=== PATIENT | female | born 1950 | race Caucasian/White ===

== ENCOUNTER 2020-09-21 13:46 | Outpatient (REF) | payer MEDICARE, MEDICAID, SELFPAY ==
--- NOTE | 2020-09-21 13:58 | MM_ITS ---
EXAMINATION: MM DIAGNOSTIC DIGITAL BREAST TOMOSYNTHESIS, BILATERAL CLINICAL INFORMATION: Continue follow-up left breast lump The lifetime risk of breast cancer based on the Tyrer-Cuzick Model is 4.0%. COMPARISON: Mammography: September 19, 2019 and studies dating back to November 18, 2012 TECHNIQUE: Digital breast tomosynthesis is performed in both the craniocaudal and mediolateral oblique views along with computer-aided detection (CAD). Synthesized 2D images are generated from the tomosynthesis. FINDINGS: The breasts are heterogeneously dense, which may obscure small masses (ACR BI-RADS breast composition Category c). There are no significant masses, abnormal calcifications, or other abnormalities. Results are provided to the patient at time of visit by the technologist. MM/MM tomosynthesis diagnostic BI IMPRESSION: There are no significant changes from prior study. ASSESSMENT: BI-RADS 1: Negative RECOMMENDATION: Return to routine annual screening This patient's information was entered into a reminder system with a target due date for their next mammogram.
== END 2020-09-21 13:47 | disposition home or self-care (01) ==
LOC: HO.MAMMO 13:46
PROVIDERS: PCP Internal Medicine; Visit Provider Internal Medicine
DX: R92.2 Inconclusive mammogram (principal)
CPT/HCPCS: 77062; 77066

== ENCOUNTER 2020-10-17 11:50 | Outpatient (REF) | payer MEDICARE, MEDICAID, SELFPAY ==
[2020-10-17 14:50] LABS: Anion Gap 13 (12-20); Blood Urea Nitrogen 11 mg/dL (9-16); Calcium 8.8 mg/dL (8.4-10.2); Carbon Dioxide 30 mmol/L (22-29); Chloride 106 mmol/L (96-108); Cholesterol 237 mg/dL; Estimated Glomerular Filt Rate > 60; Glucose Fasting 93 mg/dL (60-99); HDL Cholesterol 79 mg/dL; LDL Cholesterol Calculated 142 mg/dl; Potassium 3.9 mmol/l (3.3-5.1); Sodium 145 mmol/L (135-145); Triglycerides 82 mg/dL
[2020-10-17 15:01] LABS: Free T4 (Free Thyroxine) 0.74 ng/dL (0.71-1.85); Thyroid Stimulating Hormone 1.54 uIU/mL (0.32-4.0); Vitamin D 25-OH Total 29.8 ng/mL (>30)
== END 2020-10-17 11:51 | disposition home or self-care (01) ==
LOC: HO.HMGCLDS 11:50
PROVIDERS: PCP Internal Medicine; Visit Provider Internal Medicine
DX: E03.9 Hypothyroidism, unspecified (principal); I10 Essential (primary) hypertension; E78.5 Hyperlipidemia, unspecified; Z78.0 Asymptomatic menopausal state
CPT/HCPCS: 80048; 80061; 82306; 84439; 84443

== ENCOUNTER 2020-10-29 13:42 | Outpatient (REF) | payer MEDICARE, MEDICAID, SELFPAY ==
--- NOTE | 2020-10-29 13:47 | MM_ITS ---
EXAMINATION: BONE DENSITOMETRY CLINICAL INDICATION: Other specified disorders of bone density and structure. COMPARISON: Previous BD dated 09/30/2018 and baseline BD dated 12/26/2008. TECHNIQUE: Using a [employer] DXA System (software version: 13.1) manufactured by [employer], dual-energy x-ray absorptiometry was performed of the lumbar spine and left hip. The images are of good technical quality. Summary results are attached. FINDINGS: AP SPINE L1-L4: Current: BMD 0.923 g/cm2, Z-score -0.2, T-score -2.1, osteopenia, 1.9% decrease from previous, 13.1% decrease from baseline (<5% change is not significant). Prior: BMD 0.941 g/cm2. Baseline: BMD 1.062 g/cm2. LEFT FEMUR, NECK: Current: BMD 0.824 g/cm2, Z-score 0.2, T-score -1.5, osteopenia. Prior: BMD 0.760 g/cm2. Baseline: BMD 0.915 g/cm2. LEFT FEMUR, TOTAL: Current: BMD 0.831 g/cm2, Z-score 0.2, T-score -1.4, osteopenia, 0.5% increase from previous, 9.7% decrease from baseline (<5% change is not significant). Prior: BMD 0.827 g/cm2. Baseline: BMD 0.920 g/cm2. IDENTIFIED RISK FACTORS: Height loss, tobacco use (current smoker), thiazide, menopause. HISTORY OF FRACTURE: None listed. MEDICATIONS: Vitamin D. MM/XR DEXA axial skeleton IMPRESSION: 1. DIAGNOSIS: Osteopenia based on the lowest T-score value of -2.1 in the lumbar spine applying World Health Organization criteria. 2. 10-YEAR FRACTURE RISK PREDICTION, FRAX: Major osteoporotic fracture (clinical spine, forearm, hip or shoulder) 9.2%. Hip fracture 2.1%. 3. Treatment Recommendations: NOF guidelines recommend consideration for treatment in postmenopausal women and men age 50 and older presenting with the following: -A hip or vertebral (clinical or morphometric) fracture. -T-score less than or equal to -2.5 at the femoral neck or spine after appropriate evaluation to exclude secondary causes. -Low bone mass at the hip or spine and a 10-year fracture probability by FRAX of greater than or equal to 3% for hip fracture or greater than or equal to 20% for major osteoporotic fracture based on the [place] adapted WHO algorithm. 4. Other Recommendations: All treatment decisions require clinical judgment and consideration of individual patient factors, including patient preferences, comorbidities, previous drug use, risk factors not captured in the FRAX model (e.g. frailty, falls, vitamin D deficiency, increased bone turnover, interval significant decline in bone density) and possible under or overestimation of fracture risk by FRAX. Additional medical evaluation for secondary cause of low bone mineral density may be appropriate. FUTURE SCAN RECOMMENDATION: People with diagnosed cases of osteoporosis or at high risk for fracture should have regular bone mineral density tests. For patients eligible for Medicare, routine testing is allowed once every 2 years. The testing frequency can be increased to one year for patients who have rapidly progressing disease, those who are receiving or discontinuing medical therapy to restore bone mass, or have additional risk factors.
== END 2020-10-29 13:43 | disposition home or self-care (01) ==
LOC: HO.MAMMO 13:42
PROVIDERS: PCP Internal Medicine; Visit Provider Internal Medicine
DX: M85.89 Other specified disorders of bone density and structure, multiple sites (principal); Z78.0 Asymptomatic menopausal state
CPT/HCPCS: 77080

== ENCOUNTER 2021-07-24 08:58 | Outpatient (REF) | payer MEDICARE, MEDICAID, SELFPAY ==
[2021-07-24 11:48] LABS: Alanine Aminotransferase 8 U/L (0-31); Anion Gap 11 (12-20); Aspartate Amino Transferase 15 U/L (5-31); Blood Urea Nitrogen 11 mg/dL (9-16); Calcium 9.4 mg/dL (8.4-10.2); Carbon Dioxide 29 mmol/L (22-29); Chloride 107 mmol/L (96-108); Cholesterol 242 mg/dL; Estimated Glomerular Filt Rate > 60; Glucose Fasting 98 mg/dL (60-99); HDL Cholesterol 91 mg/dL; LDL Cholesterol Calculated 139 mg/dl; Sodium 143 mmol/L (135-145); Triglycerides 61 mg/dL
[2021-07-24 12:11] LABS: Free T4 (Free Thyroxine) 0.76 ng/dL (0.71-1.85); Thyroid Stimulating Hormone 2.89 uIU/mL (0.32-4.0); Vitamin D 25-OH Total 32.2 ng/mL (>30)
== END 2021-07-24 08:59 | disposition home or self-care (01) ==
LOC: HO.HMGCLDS 08:58
PROVIDERS: PCP Internal Medicine; Visit Provider Internal Medicine
DX: E03.9 Hypothyroidism, unspecified (principal); E55.9 Vitamin D deficiency, unspecified; E78.5 Hyperlipidemia, unspecified; M85.89 Other specified disorders of bone density and structure, multiple sites; I10 Essential (primary) hypertension; Z78.0 Asymptomatic menopausal state
CPT/HCPCS: 36415; 80048; 80061; 82306; 84439; 84443; 84450; 84460

== ENCOUNTER 2021-09-27 13:46 | Outpatient (REF) | payer MEDICARE, MEDICAID, SELFPAY ==
--- NOTE | ~2021-09-27 | MM_ITS ---
EXAMINATION: MM SCREENING DIGITAL BREAST TOMOSYNTHESIS, BILATERAL CLINICAL INFORMATION: Screening. Asymptomatic. The lifetime risk of breast cancer based on the Tyrer-Cuzick Model is 4%. COMPARISON: Mammography: 09/21/2020, 09/19/2019, 04/12/2019, 10/12/2018, 09/30/2018 TECHNIQUE: Digital breast tomosynthesis is performed in both the craniocaudal and mediolateral oblique views along with computer-aided detection (CAD). Synthesized 2D images are generated from the tomosynthesis. FINDINGS: There are scattered areas of fibroglandular density (ACR BI-RADS breast composition Category b). Breast tissue composition borders on heterogeneously dense. Parenchymal pattern is similar to prior studies and there is no developing density or interval mass or architectural abnormality. There are no abnormal calcifications. The axilla and skin contours are unremarkable. MM/MM tomosynthesis screening BI IMPRESSION: No mammographic evidence of malignancy. ASSESSMENT: BI-RADS 1: Negative RECOMMENDATION: Routine annual mammography screening. This patient's information was entered into a reminder system with a target due date for their next mammogram.
== END 2021-09-27 13:47 | disposition home or self-care (01) ==
LOC: HO.MAMMO 13:46
PROVIDERS: Visit Provider Internal Medicine
DX: Z12.31 Encounter for screening mammogram for malignant neoplasm of breast (principal)
CPT/HCPCS: 77063; 77067

== ENCOUNTER 2021-12-10 10:39 | Outpatient (REF) | payer MEDICARE, MEDICAID, SELFPAY ==
[2021-12-10 12:02] LABS: Alanine Aminotransferase 9 U/L (0-31); Anion Gap 12 (12-20); Aspartate Amino Transferase 15 U/L (5-31); Blood Urea Nitrogen 12 mg/dL (9-16); Calcium 9.3 mg/dL (8.4-10.2); Carbon Dioxide 29 mmol/L (22-29); Chloride 106 mmol/L (96-108); Cholesterol 247 mg/dL; Estimated Glomerular Filt Rate > 60; Glucose Fasting 104 mg/dL (60-99); HDL Cholesterol 76 mg/dL; LDL Cholesterol Calculated 153 mg/dl; Sodium 143 mmol/L (135-145); Triglycerides 94 mg/dL
[2021-12-10 12:05] LABS: Free T4 (Free Thyroxine) 0.82 ng/dL (0.71-1.85); Thyroid Stimulating Hormone 1.61 uIU/mL (0.32-4.0); Vitamin D 25-OH Total 22.6 ng/mL (>30)
== END 2021-12-10 10:40 | disposition home or self-care (01) ==
LOC: HO.HMGCLDS 10:39
PROVIDERS: Visit Provider Internal Medicine
DX: E03.9 Hypothyroidism, unspecified (principal); E55.9 Vitamin D deficiency, unspecified; E78.5 Hyperlipidemia, unspecified; F41.1 Generalized anxiety disorder; I10 Essential (primary) hypertension; M85.89 Other specified disorders of bone density and structure, multiple sites
CPT/HCPCS: 36415; 80048; 80061; 82306; 84439; 84443; 84450; 84460

== ENCOUNTER 2022-04-15 14:50 | Outpatient (REF) | payer MEDICARE, MEDICAID, SELFPAY ==
--- NOTE | 2022-04-15 17:26 | PFT_ITS ---
Forced vital capacity 83%. FEV1 64%. FEV1/FVC ratio is 59. FEF 25-75 35% and MVV is 49%. Post bronchodilator therapy, there is significant improvement in FVC and FEF 25-75. Total lung capacity 99%. Residual volume 118%. Diffusion capacity 50%. CONCLUSION: Moderately severe obstructive airway disorder. Partial reversibility after bronchodilator therapy is noted. Findings are consistent with asthma/COPD overlap syndrome. Clinical correlation recommended. MD JAH Grace/MODL / [id number]
== END 2022-04-15 14:51 | disposition home or self-care (01) ==
LOC: HO.RESP 14:50
PROVIDERS: PCP Internal Medicine; Visit Provider Internal Medicine
DX: F17.210 Nicotine dependence, cigarettes, uncomplicated (principal); J44.9 Chronic obstructive pulmonary disease, unspecified
CPT/HCPCS: 94060; 94727; 94729

== ENCOUNTER 2022-07-24 10:54 | Outpatient (REF) | payer MEDICARE, MEDICAID, SELFPAY ==
[2022-07-24 14:54] LABS: Alanine Aminotransferase 12 U/L (0-31); Anion Gap 14 (12-20); Aspartate Amino Transferase 16 U/L (5-31); Blood Urea Nitrogen 10 mg/dL (9-16); Calcium 9.2 mg/dL (8.4-10.2); Carbon Dioxide 28 mmol/L (22-29); Chloride 104 mmol/L (96-108); Cholesterol 256 mg/dL; Estimated Glomerular Filt Rate > 60; Glucose Fasting 109 mg/dL (60-99); HDL Cholesterol 84 mg/dL; LDL Cholesterol Calculated 156 mg/dl; Potassium 4.2 mmol/L (3.3-5.1); Sodium 142 mmol/L (135-145); Triglycerides 82 mg/dL
[2022-07-24 15:54] LABS: Free T4 (Free Thyroxine) 0.82 ng/dL (0.71-1.85); Thyroid Stimulating Hormone 7.24 uIU/mL (0.32-4.0); Vitamin D 25-OH Total 40.3 ng/mL (>30)
== END 2022-07-24 10:55 | disposition home or self-care (01) ==
LOC: HO.HMGCLDS 10:54
PROVIDERS: PCP Internal Medicine; Visit Provider Internal Medicine
DX: E03.9 Hypothyroidism, unspecified (principal); E55.9 Vitamin D deficiency, unspecified; E78.5 Hyperlipidemia, unspecified; I10 Essential (primary) hypertension
CPT/HCPCS: 36415; 80048; 80061; 82306; 84439; 84443; 84450; 84460

== ENCOUNTER 2022-10-29 12:34 | Outpatient (REF) | payer MEDICARE, MEDICAID, SELFPAY ==
--- NOTE | ~2022-10-29 | MM_ITS ---
EXAMINATION: MM SCREENING DIGITAL BREAST TOMOSYNTHESIS, BILATERAL CLINICAL INFORMATION: Screening. Asymptomatic. The lifetime risk of breast cancer based on the Tyrer-Cuzick Model is 3%. COMPARISON: Mammography: 09/27/2021, 09/21/2020, 09/19/2019, 09/30/2018 TECHNIQUE: Digital breast tomosynthesis is performed in both the craniocaudal and mediolateral oblique views along with computer-aided detection (CAD). Synthesized 2D images are generated from the tomosynthesis. FINDINGS: There are scattered areas of fibroglandular density (ACR BI-RADS breast composition Category b). Parenchymal pattern is similar to prior studies. There is no developing density or architectural abnormality. Breast tissue composition borders on heterogeneously dense. There are no significant masses, abnormal calcifications, or other abnormalities. The axilla are unremarkable. No significant changes. MM/MM tomosynthesis screening BI IMPRESSION: No mammographic evidence of malignancy. ASSESSMENT: BI-RADS 1: Negative RECOMMENDATION: Routine annual mammography screening. This patient's information was entered into a reminder system with a target due date for their next mammogram.
== END 2022-10-29 12:35 | disposition home or self-care (01) ==
LOC: HO.MAMMO 12:34
PROVIDERS: PCP Internal Medicine; Visit Provider Internal Medicine
DX: Z12.31 Encounter for screening mammogram for malignant neoplasm of breast (principal)
CPT/HCPCS: 77063; 77067

== ENCOUNTER 2023-02-04 09:12 | Outpatient (REF) | payer MEDICARE, MEDICAID, SELFPAY ==
[2023-02-04 13:03] LABS: Alanine Aminotransferase 7 U/L (0-31); Anion Gap 13 (12-20); Aspartate Amino Transferase 15 U/L (5-31); Blood Urea Nitrogen 11 mg/dL (9-16); Calcium 9.1 mg/dL (8.4-10.2); Carbon Dioxide 29 mmol/L (22-29); Chloride 109 mmol/L (96-108); Cholesterol 235 mg/dL; Estimated Glomerular Filt Rate > 60; Glucose Fasting 108 mg/dL (60-99); HDL Cholesterol 66 mg/dL; LDL Cholesterol Calculated 154 mg/dl; Potassium 3.9 mmol/L (3.3-5.1); Sodium 147 mmol/L (135-145); Triglycerides 78 mg/dL
[2023-02-04 13:07] LABS: Free T4 (Free Thyroxine) 0.88 ng/dL (0.71-1.85); Thyroid Stimulating Hormone 1.44 uIU/mL (0.32-4.0); Vitamin D 25-OH Total 31.5 ng/mL (>30)
== END 2023-02-04 09:13 | disposition home or self-care (01) ==
LOC: HO.HMGCLDS 09:12
PROVIDERS: PCP Internal Medicine; Visit Provider Internal Medicine
DX: Z00.01 Encounter for general adult medical examination with abnormal findings (principal); E03.9 Hypothyroidism, unspecified; E55.9 Vitamin D deficiency, unspecified; E78.5 Hyperlipidemia, unspecified; F41.1 Generalized anxiety disorder; I10 Essential (primary) hypertension; M85.89 Other specified disorders of bone density and structure, multiple sites; Z78.0 Asymptomatic menopausal state
CPT/HCPCS: 36415; 80048; 80061; 82306; 84439; 84443; 84450; 84460

== ENCOUNTER 2023-07-12 01:59 | Emergency (ER) | payer OTHER, SELFPAY ==
[2023-07-12 02:08] VITALS: BP 170/90; BP 176/84; PULSE 64; PULSE 80; RESP 17; TEMP 36.4; O2SAT 96; O2SAT 97; BMI 63.6
[2023-07-12 02:42] LABS: Hemoglobin 15.2 g/dl (12.0-16.0); Mean Corpuscular HGB Conc 32.3 g/dl (31.0-35.0); Mean Corpuscular Hemoglobin 29.2 pg (27.0-33.0); Mean Corpuscular Volume 90.2 fL (80.0-98.0); Platelet Count 182 X10*3/uL (160-400); Red Blood Count 5.21 X10*6/uL (4.20-5.50); Red Cell Distribution Width 14.3 % (11.0-16.0); White Blood Count 5.4 X10*3/uL (4.8-10.8)
--- NOTE | 2023-07-12 02:44 | PC.NURSE ---
Pt BIBA, A&Ox3, Pt denies pain, pt reports dental work this week. Denies any drug use. Pt in no apparent distress and resting quietly.
[2023-07-12 02:52] LABS: Appearance Urine Clear; Color Urine Yellow; Glucose Urine UA Negative (Negative); Leukocyte Esterase Urine Negative (Negative); Nitrite Urine Negative (Negative); PH 5.5 (5.0-9.0); Specific Gravity - Urine 1.015 (1.005-1.025); UMIC TRIGGER UACC YES; Urine Blood Small (1+) (Negative); Urine Ketones Negative (Negative); Urine Protein Negative (Neg-Trace)
[2023-07-12 02:53] LABS: Anion Gap 12 (12-20); Blood Urea Nitrogen 17 mg/dL (9-16); Calcium 9.7 mg/dL (8.4-10.2); Carbon Dioxide 29 mmol/L (22-29); Chloride 105 mmol/L (96-108); Creatinine Clr Calc Pharmacy 17.2; Estimated Glomerular Filt Rate > 60; Glucose Random 99 mg/dL (60-115); Potassium 4.4 mmol/L (3.3-5.1); Sodium 142 mmol/L (135-145)
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
[2023-07-12 03:30] LABS: Ethanol < 10 mg/dL
[2023-07-12 03:33] LABS: Amphetamine Screen Urine Not Detected (Not Detect); Barbiturates, Urine Not Detected (Not Detect); Benzodiazepines Screen Urine POSITIVE (Not Detect); Cannabinoid Screen Urine Not Detected (Not Detect); Cocaine Screen Urine Not Detected (Not Detect); Fentanyl, urine Not Detected (Not Detect); Opiate Screen Urine Not Detected (Not Detect); Phencyclidine Screen Urine Not Detected (Not Detect)
[2023-07-12 04:01] LABS: Squamous Epithelial Cell Urine 0-2 /HPF (0-2); WBC Urine 0-5 /HPF (0-5)
[2023-07-12 04:02] LABS: Bacteria Urine None Seen (None Seen); Hyaline Casts Urine 0-2 /LPF (0-2)
== END 2023-07-12 03:51 | disposition home or self-care (01) ==
PROVIDERS: Emergency Provider Emergency Medicine
DX: R41.0 Disorientation, unspecified (principal); I10 Essential (primary) hypertension; E03.9 Hypothyroidism, unspecified; E78.5 Hyperlipidemia, unspecified; Z79.899 Other long term (current) drug therapy
CPT/HCPCS: 36415; 80048; 80307; 81001; 85027; 99283; 99284

== ENCOUNTER 2023-07-16 09:07 | Outpatient (AMB) | payer MEDICARE, MEDICAID, SELFPAY ==
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
[2023-07-16 09:21] VITALS: BP 110/70; PULSE 71; O2SAT 100; BMI 19.7
== END 2023-07-16 10:56 | disposition home or self-care (01) ==
PROVIDERS: PCP Internal Medicine; Visit Provider Internal Medicine
DX: E03.9 Hypothyroidism, unspecified (principal); F41.1 Generalized anxiety disorder; E55.9 Vitamin D deficiency, unspecified; R41.0 Disorientation, unspecified; E78.5 Hyperlipidemia, unspecified
CPT/HCPCS: 99214

== ENCOUNTER 2023-08-15 15:25 | Emergency (ER) | payer OTHER, MEDICAID, SELFPAY ==
[2023-08-15 15:39] VITALS: BP 151/84; PULSE 98; RESP 18; TEMP 36.6; O2SAT 97; BMI 20.3
[2023-08-15 15:43] VITALS: BP 144/84; PULSE 120; O2SAT 98
--- NOTE | 2023-08-15 16:06 | ECG_ITS ---
Test Reason : ALTERED MENTAL Blood Pressure : / mmHG Vent. Rate : 084 BPM Atrial Rate : 084 BPM P-R Int : 114 ms QRS Dur : 064 ms QT Int : 342 ms P-R-T Axes : 070 037 055 degrees QTc Int : 404 ms Normal sinus rhythm Normal ECG When compared with ECG of 03-OCT-2017 15:40, No significant change was found Referred By: Bren Mcgee Electronically Signed By:YOLANDA TRINH
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
[2023-08-15 16:48] VITALS: BP 130/66; PULSE 80; RESP 16; TEMP 36.9; O2SAT 95
[2023-08-15 16:50] LABS: MANUAL DIFF FLAG NO
[2023-08-15 16:53] LABS: Basophils Absolute Auto 0.1 X10*3/uL (0.0-0.2); Basophils Percent Auto 0.7 % (0-2); Eosinophils Percent Auto 0.4 % (0-4); Hematocrit 45.5 % (37.0-47.0); Hemoglobin 15.1 g/dl (12.0-16.0); Imm Gran Abs Auto 0.02 X10*3/uL (0.00-0.03); Imm Gran Pct Auto 0.3 % (0.0-0.4); Lymphocytes Absolute Auto 1.2 X10*3/uL (1.2-4.9); Lymphocytes Percent Auto 18.2 % (20-40); Mean Corpuscular HGB Conc 33.2 g/dl (31.0-35.0); Mean Corpuscular Hemoglobin 30.1 pg (27.0-33.0); Mean Corpuscular Volume 90.8 fL (80.0-98.0); Mean Platelet Volume 10.6 fL (9.4-12.3); Monocytes Absolute Auto 0.5 X10*3/uL (0.1-1.2); Monocytes Percent Auto 7.7 % (2-11); Neutrophils Absolute Auto 4.9 x10*3/uL (2.0-8.3); Neutrophils Percent Auto 72.7 % (45-73); Platelet Count 166 X10*3/uL (160-400); Red Blood Count 5.01 X10*6/uL (4.20-5.50); Red Cell Distribution Width 14.3 % (11.0-16.0); White Blood Count 6.8 X10*3/uL (4.8-10.8)
--- NOTE | 2023-08-15 16:54 | MHC.EDTECH ---
PATIENT CAME VIA EMS ,PT WAS CHANGE INTO HOSPITAL ATTIRE ,VITALS SIGN TAKEN ,BLOOD DRAWN AND SENT TO LAB ,EKG TAKEN AND WAS READ BY PROVIDER ,PT WALK TO BATHROOM ,BUT COULD NOT VOID ,PT HAD SOME WATER TO DRINK ,PT SISTER AT BED ,PT IS COMFORTABLE WATCHING TELEVISION ,WILL CONTINUE TO MONITOR .
[2023-08-15 17:06] LABS: Ethanol < 10 mg/dL
[2023-08-15 17:09] LABS: Alanine Aminotransferase 8 U/L (0-31); Albumin Level 3.6 g/dL (3.5-5.0); Alkaline Phosphatase 45 U/L (39-117); Anion Gap 17 (12-20); Aspartate Amino Transferase 17 U/L (5-31); Bilirubin Direct 0.1 mg/dL (0.0-0.5); Bilirubin Total 0.4 mg/dL (0.0-1.0); Blood Urea Nitrogen 17 mg/dL (9-16); Calcium 9.5 mg/dL (8.4-10.2); Carbon Dioxide 26 mmol/L (22-29); Chloride 105 mmol/L (96-108); Creatinine Clr Calc Pharmacy 57.3; Estimated Glomerular Filt Rate > 60; Glucose Random 101 mg/dL (60-115); Magnesium 2.2 mg/dL (1.6-2.6); Potassium 4.5 mmol/L (3.3-5.1); Sodium 143 mmol/L (135-145); Total Protein 6.1 g/dL (6.5-8.0)
[2023-08-15 17:28] LABS: TSH reflex Free T4 (Prenatal) 0.26 uIU/mL (0.32-4.0)
[2023-08-15 18:05] LABS: Free T4 (Free Thyroxine) 0.89 ng/dL (0.71-1.85)
[2023-08-15 18:08] VITALS: BP 128/62; PULSE 75; RESP 16; TEMP 37.1; O2SAT 98
--- NOTE | 2023-08-15 18:25 | MHC.EDTECH ---
PATIENT WAS ESCORTED TO THE BATHROOM ,URINE SAMPLE COLLECTED AND SENT TO LAB ,PT BELONGING LIST DONE AND LOCKED UP IN POD ,VITALS SIGN TAKEN ,PT NOW HAVING A SANDWICH AND SOME JUICE .
[2023-08-15 18:29] LABS: Appearance Urine Clear; Color Urine Yellow; Glucose Urine UA Negative (Negative); Leukocyte Esterase Urine Small (1+) (Negative); Nitrite Urine Negative (Negative); PH 6.5 (5.0-9.0); UMIC TRIGGER UACC YES; Urine Blood Small (1+) (Negative); Urine Ketones Trace mg/dL (Negative); Urine Protein Trace mg/dL (Neg-Trace)
[2023-08-15 18:36] LABS: Amphetamine Screen Urine Not Detected (Not Detect); Bacteria Urine None Seen (None Seen); Barbiturates, Urine Not Detected (Not Detect); Benzodiazepines Screen Urine Not Detected (Not Detect); Cannabinoid Screen Urine Not Detected (Not Detect); Cocaine Screen Urine Not Detected (Not Detect); Fentanyl, urine Not Detected (Not Detect); Opiate Screen Urine Not Detected (Not Detect); Phencyclidine Screen Urine Not Detected (Not Detect); Squamous Epithelial Cell Urine 0-2 /HPF (0-2); UACC Culture Trigger YES; WBC Urine 0-5 /HPF (0-5)
--- NOTE | 2023-08-15 18:47 | PC.NURSE ---
patient is calm and cooperative, eating dinner at bedside
--- NOTE | 2023-08-15 19:37 | PC.NURSE ---
Addendum entered by Treasure Grover RN 08/15/23 19:41: Forrest Mcmillan, Daughter [phone]. Original Note: Spoke with Forrest Espinosaentine, pt daughter, who states she is the healthcare proxy as of 06/2023. Will speak with registration to ensure proper documentation. Daughter is concerned because pt has been a drinker and xanax taker for 30 years. Pt got her xanax prescription stopped about 1 week ago. Daughter is worried about withdrawal. Pt is resting comfortably on the edge of her bed at this time. CARE team is with pt to make a determination of if pt will be [facility] or PT/CM.
[2023-08-15 22:12] VITALS: BP 125/61; PULSE 75; RESP 19; TEMP 36.8; O2SAT 93
--- NOTE | 2023-08-15 22:48 | PC.NURSE ---
Pt ambulated to bathroom with a standby assist
--- NOTE | 2023-08-15 23:36 | PC.NURSE ---
Med Rec completed at this time
[2023-08-16 00:09] VITALS: BP 139/62; PULSE 67; RESP 18; TEMP 37.1; O2SAT 98
[2023-08-16 02:06] VITALS: BP 142/76; PULSE 76; RESP 19; TEMP 36.7; O2SAT 98
[2023-08-16] MEDS: LORazepam 1 MG TABLET PO (02:42)
[2023-08-16] MEDS: Thyroid,Pork 30 MG TABLET 60 MG PO (06:33)
--- NOTE | 2023-08-16 07:07 | PC.NURSE ---
patient sitting up eating breakfast, calm and cooperative. ambulated to bathroom with steady gait
[2023-08-16] MEDS: Metoprolol Succinate ER 50 MG TAB.ER.24H PO (07:32)
[2023-08-16] MEDS: Sertraline HCL 50 MG TABLET 150 MG PO (07:33)
[2023-08-16] MEDS: Multivitamin TABLET 1 TAB PO ×2 (07:33)
[2023-08-16 07:34] VITALS: BP 124/74; PULSE 102; RESP 16; TEMP 37.1; O2SAT 96
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
[2023-08-16 10:54] VITALS: BP 117/58; PULSE 62; RESP 16; O2SAT 96
[2023-08-16 15:48] VITALS: BP 113/61; PULSE 67; RESP 14; TEMP 36.6; O2SAT 96
[2023-08-16] MEDS: Thiamine HCL 100 MG TABLET PO (16:00)
--- NOTE | 2023-08-16 17:28 | PM.PSYCN ---
History of Present Illness Date of Service: 08/16/2023 Chief Complaint: increased confusion Reason for Consult: xanax withdrawal Discussed with referring provider: Yes Sources of Information: patient interviewed, chart reviewed and crisis/core team assessment reviewed HPI Narrative: Mrs. Pate is a 73 year-old woman w/ hx of alcohol use and previous rx of xanax. Pt reports she missed several appointment with her outpatient psychiatric provider and case was close. She reports last xanax taken 2 weeks ago. Family have been concern in terms of her ability to care for herself. Pt presents fully oriented to place, situation, month and date. She does report that she is not sure why she was not able to keep up with her psych appointments to the point that she was dismissed from the practice. BAL was neg. She reports drinking 2 beers every other day. Family reports she drinks daily. Pt currently on a CIWA but not scoring. VS stable. No tremors. She does not appear to have withdrawal s/s from xanax- especially if last dose was more than 2 weeks ago. [facility] Medical History Alcohol use disorder, mild, abuse Confusion and disorientation Tubular adenoma of colon Cigarette smoker one half pack a day or less Restless leg syndrome Generalized anxiety disorder Essential hypertension Vitamin D deficiency Osteopenia of multiple sites Dyslipidemia Acquired hypothyroidism Surgical History History of loop electrosurgical excision procedure (LEEP) Diagnostics Vital Signs (24Hr): Vital Signs - 24 hr 08/15/23 18:08 08/15/23 22:12 08/16/23 00:09 Temperature 98.7 F 98.2 F 98.7 F Pulse Rate 75 75 67 Respiratory Rate 16 19 18 Blood Pressure 128/62 125/61 139/62 Pulse Oximetry 98 93 98 Oxygen Delivery Method Room Air Room Air Room Air 08/16/23 02:06 08/16/23 07:34 08/16/23 10:54 Temperature 98.1 F 98.8 F Pulse Rate 76 102 H 62 Respiratory Rate 19 16 16 Blood Pressure 142/76 H 124/74 117/58 L Pulse Oximetry 98 96 96 Oxygen Delivery Method Room Air Room Air Room Air 08/16/23 15:48 Temperature 97.9 F Pulse Rate 67 Respiratory Rate 14 Blood Pressure 113/61 Pulse Oximetry 96 Oxygen Delivery Method Room Air BMI result Body Mass Index 20.3 Labs 08/15/23 16:47 08/15/23 16:47 Labs: Laboratory Results - last 48 hr 08/15/23 08/15/23 16:47 18:09 WBC 6.8 RBC 5.01 Hgb 15.1 Hct 45.5 MCV 90.8 MCH 30.1 MCHC 33.2 RDW 14.3 Plt Count 166 MPV 10.6 Immature Gran % (Auto) 0.3 Neut % (Auto) 72.7 Lymph % (Auto) 18.2 L [place] % (Auto) 7.7 Eos % (Auto) 0.4 Baso % (Auto) 0.7 Lymph # (Auto) 1.2 [place] # (Auto) 0.5 Eos # (Auto) 0.0 Baso # (Auto) 0.1 Abs Immat Gran (auto) 0.02 Absolute Neuts (auto) 4.9 Absolute Nucleated RBC 0.000 Nucleated RBC % (auto) 0.0 Sodium 143 Potassium 4.5 Chloride 105 Carbon Dioxide 26 Anion Gap 17 BUN 17 H Creatinine 0.76 Estim Creat Clear Calc 57.3 Estimated GFR > 60 Random Glucose 101 Calcium 9.5 Magnesium 2.2 Total Bilirubin 0.4 Direct Bilirubin 0.1 AST 17 ALT 8 Alkaline Phosphatase 45 Total Protein 6.1 L Albumin 3.6 Free T4 0.89 TSH 3rd Generation 0.26 L Urine Color Yellow Urine Appearance Clear Urine pH 6.5 Ur Specific [place] 1.020 Urine Protein Trace Urine Glucose (UA) Negative Urine Ketones Trace Urine Blood Small (1+) H Urine Nitrite Negative Ur Leukocyte Esterase Small (1+) H Urine RBC 11-20 H Urine WBC 0-5 Ur Squamous Epith Cells 0-2 Urine Bacteria None Seen Hyaline Casts 3-5 Urine Opiates Screen Not Detected Urine Fentanyl Screen Not Detected Ur Barbiturates Screen Not Detected Ur Phencyclidine Scrn Not Detected Ur Amphetamines Screen Not Detected U Benzodiazepines Scrn Not Detected Urine Cocaine Screen Not Detected U Marijuana (THC) Screen Not Detected Ethyl Alcohol < 10 Mental Status Exam Mental Status Exam Narrative: Appearance: casually groomed, fair hygiene, in NAD Behavior: cooperative Psychomotor: no agitation or retardation noted. No tremors Speech: clear, normal rate/rhythm/volume, spontaneous TP: linear TC: no over psychosis, aware of situation and concerns from family Mood: good' Affect: congruent SI: none HI: none Delusions: none VH/AH: none Insight/judgment: fair x 2. Memory/cog: alert, oriented x 3. consider completing moca Medications Medications Current Medications Albuterol Sulfate (Albuterol Sulfate 90 Mcg 8 Gm Inhaler) 2 puff INHALE Q4H PRN PRN Reason: dyspnea Metoprolol Succinate (Metoprolol Succinate Er 50 Mg Tab.Er.24h) 50 mg PO DAILY [facility]; Protocol Last Admin: 08/16/23 07:32 Dose: 50 mg Multivitamins/Vitamin C (Multivitamin Tablet) 1 tab PO DAILY [facility] Last Admin: 08/16/23 07:33 Dose: 1 tab Multivitamins/Vitamin C (Multivitamin Tablet) 1 tab PO DAILY [facility] Last Admin: 08/16/23 07:33 Dose: 1 tab Sertraline HCl (Sertraline Hcl 50 Mg Tablet) 150 mg PO DAILY [facility] Last Admin: 08/16/23 07:33 Dose: 150 mg Thiamine HCl (Thiamine Hcl 100 Mg Tablet) 100 mg PO DAILY [facility] Last Admin: 08/16/23 16:00 Dose: 100 mg Thyroid (Thyroid,Pork 30 Mg Tablet) 60 mg PO DAILY@0600 [facility] Last Admin: 08/16/23 06:33 Dose: 60 mg Allergies Allergies Allergy/AdvReac Type Severity Reaction Status Date / Time No Known Allergies Allergy Verified 07/16/23 09:33 [No Known Allergies*] Assessment & Plan Assessment & Plan (1) Alcohol use disorder, mild, abuse: Status: Acute Code(s): F10.10 - Alcohol abuse, uncomplicated Plan Ms. Aleman is a 73 year-old woman brought in to [facility] due to concern of inability to care for self. Pt also reports using alcohol. Currently on ciwa, no significant score. VS stable, not indicative of acute withdrawa. Started on thiamine. No signs of xanax withdrawal at this point. She reports last dose was 2 week ago. Consider completing MOCA, ACL to get better sense of ability to function in community. - no signs of xanax withdrawal, can monitor alcohol withdrawal, but score also zero. Total time managing care of this patient today ____ minutes.
--- NOTE | 2023-08-16 19:45 | PC.NURSE ---
This RN took over pt assignment at 1900. Pt assisted to the bathroom. Pt ambulates with a steady gait. Pt assisted back into bed. Plan of care ongoing.
--- NOTE | 2023-08-16 21:50 | PC.NURSE ---
Pt ambulated to the bathroom Plan of care ongoing.
--- NOTE | 2023-08-16 21:53 | PC.NURSE ---
Pt assisted back into bed by tech. Plan of care ongoing.
[2023-08-16 23:43] VITALS: BP 141/78; PULSE 64; RESP 17; TEMP 36.2; O2SAT 96
--- NOTE | 2023-08-16 23:59 | PC.NURSE ---
Pt states why cant I have my vitamin it helps me sleep This RN explained the vitamin pill was already given this morning. Pt ambulated to the bathroom. Plan of care ongoing.
--- NOTE | 2023-08-17 01:53 | PC.NURSE ---
Pt assisted to the restroom. Pt states after I use the bathroom, I'd like my clothes because I'm going home. Pt redirectable Pt assisted back into bed. Plan of care ongoing.
--- NOTE | 2023-08-17 02:45 | PC.NURSE ---
pt refused the tylenol.
--- NOTE | 2023-08-17 04:29 | PC.NURSE ---
Pt ambulated to the bathroom. Pt requesting to take tylenol at 0600 with other med. Plan of care ongoing.
[2023-08-17 05:32] VITALS: BP 132/72; PULSE 62; RESP 17; TEMP 36.6; O2SAT 97
--- NOTE | 2023-08-17 06:09 | PC.NURSE ---
Med not in the Pyxis. This RN called pharmacy and pharmacy sending the med down. Pt made aware waiting on med from pharmacy. Plan of care ongoing.
[2023-08-17] MEDS: Thyroid,Pork 30 MG TABLET 60 MG PO (06:18)
[2023-08-17] MEDS: Acetaminophen 325 MG TABLET 650 MG PO ×2 (06:19→22:36)
--- NOTE | 2023-08-17 06:32 | PC.NURSE ---
Pt requested the tylenol at the same time as her 0600 med. Pt medicated per jan. Plan of care ongoing.
--- NOTE | 2023-08-17 06:57 | PC.NURSE ---
Report and handoff given to oncoming RN.
[2023-08-17] MEDS: Thiamine HCL 100 MG TABLET PO (08:46)
[2023-08-17] MEDS: Metoprolol Succinate ER 50 MG TAB.ER.24H PO (08:46)
[2023-08-17] MEDS: Sertraline HCL 50 MG TABLET 150 MG PO (08:46)
[2023-08-17] MEDS: Multivitamin TABLET 1 TAB PO ×2 (08:46)
--- NOTE | 2023-08-17 12:12 | PC.NURSE ---
[place] [id number]. pt sleeping at time of assuming care. pt a+o x3. denies pain. calm, pleasant. ambulated to bathroom independently. will continue to observe.
--- NOTE | 2023-08-17 12:23 | PC.NURSE ---
pt asking to speak with Care Team to find out what the plan is. Message sent. will f/u.
--- NOTE | 2023-08-17 14:35 | MHC.CM.ED ---
Addendum entered by Yodit Kraft 08/17/23 15:55: Received telephone call from patient's daughter, Forrest. Update given to Forrest via telephone. Forrest can be reached via telephone at [phone]. Original Note: Patient remains in ER overflow. Psych consult was started. It is not felt that inpatient psych is needed. MOCA & ACL are requested for additional help in determining if patient has the capacity to make her own decisions. Received telephone call from Jai at [facility]. He can be reached via telephone at [phone] ext [phone]. Jai made aware that eval for capacity is still pending. Continue to monitor for d/c needs.
[2023-08-17 15:37] VITALS: BP 139/73; PULSE 62; RESP 15; TEMP 36.4; O2SAT 95
--- NOTE | 2023-08-17 16:13 | PC.NURSE ---
twin sister Susi ([phone]).
--- NOTE | 2023-08-17 17:06 | MHC.EDTECH ---
Patient given dinner tray
--- NOTE | 2023-08-17 18:06 | MHC.EDTECH ---
Patient given shower and total bed changed
--- NOTE | 2023-08-17 19:45 | PC.NURSE ---
Assumed care of PT at 1915. PT resting comfortably in bed watching TV> PT requested and provided cup for ice water. PT reports no pain or other concerns at this time. Door left open and lights dimmed. Call ken within reach. Plan of care ongoing
--- NOTE | 2023-08-17 22:45 | PC.NURSE ---
PT medicated as per JAN.
[2023-08-17 23:49] VITALS: BP 131/57; PULSE 75; RESP 16; TEMP 37.1; O2SAT 96
[2023-08-18] MEDS: Thyroid,Pork 30 MG TABLET 60 MG PO (05:16)
[2023-08-18] MEDS: Sertraline HCL 50 MG TABLET 150 MG PO (08:07)
[2023-08-18] MEDS: Thiamine HCL 100 MG TABLET PO (08:07)
[2023-08-18] MEDS: Multivitamin TABLET 1 TAB PO (08:08)
[2023-08-18] MEDS: Metoprolol Succinate ER 50 MG TAB.ER.24H PO (08:09)
--- NOTE | 2023-08-18 08:14 | PC.NURSE ---
Alert with some confusion, good po intake and appetite for breakfast. Denies pain or discomfort.
[2023-08-18 13:26] VITALS: BP 115/57; PULSE 66; RESP 16; TEMP 36.8; O2SAT 96
--- NOTE | 2023-08-18 16:00 | MHC.EDTECH ---
THIS PCT ASSUMED CARE OF PT AT 1500 ,PT WALKING AROUND INDEPENDENTLY ,NO APPARENT DISTRESS .
--- NOTE | 2023-08-18 18:19 | PC.NURSE ---
Calm and cooperative ambulates independently on unit. Denies pain or discomfort. Ate well for dinner. Spoke with family on the phone
--- NOTE | 2023-08-18 18:26 | MHC.EDTECH ---
PATIENT ATE 100 % OF DINNER ,DRANK 360 ML FLUIDS ,PT COMFORTABLE WATCHING TELEVISION ,WILL CONTINUE TO MONITOR .
[2023-08-18 22:00] VITALS: BP 156/72; PULSE 62; RESP 18; TEMP 36.5; O2SAT 95
[2023-08-19] MEDS: Thyroid,Pork 30 MG TABLET 60 MG PO (06:16)
[2023-08-19 06:35] VITALS: BP 129/64; PULSE 57; RESP 15; TEMP 36.6; O2SAT 95
[2023-08-19] MEDS: Sertraline HCL 50 MG TABLET 150 MG PO (08:34)
[2023-08-19] MEDS: Metoprolol Succinate ER 50 MG TAB.ER.24H PO (08:34)
[2023-08-19] MEDS: Thiamine HCL 100 MG TABLET PO (08:34)
[2023-08-19 13:49] VITALS: BP 103/53; PULSE 65; RESP 16; TEMP 36.5; O2SAT 94
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
--- NOTE | 2023-08-19 14:00 | MHC.CM.ED ---
Patient remains in ER overflow. MOCA and ACL assessments completed. Marce MONTIEL aware. Anticipate HCP will be invoked. Patient's daughter, Forrest, made aware via telephone at [phone]. Forrest will send a copy of HCP to T/W. LTC placement will be pursued. Attempted to notify Yessica from [facility] via telephone at [phone]. Left message explaining the above information. Continue to monitor for d/c needs.
--- NOTE | 2023-08-19 18:01 | PC.NURSE ---
Pt ambulating independently. Seen by Behavioral Health OT. Awaiting dispo plan
--- NOTE | 2023-08-19 18:12 | MHC.EDTECH ---
PATIENT WAS AGATATED ,WE HAD HER SPOKE TO HER SISTER AND DAUGHTER ,THEN PATIENT WAS OSWALD ,PT ATE 100 % OF MEAL DRANK 360 ML COFFEE ,PT WATCHING TELEVISION ,NO APPARENT DISTRESS AT THIS TIME ,WILL CONTINUE TO MONITOR .
--- NOTE | 2023-08-19 18:26 | P.CNPS_ITS ---
History of Present Illness Date of Service: 08/19/2023 Chief Complaint: increased confusion Reason for Consult: ability to care for herself Discussed with referring provider: Yes Sources of Information: patient interviewed, chart reviewed and crisis/core team assessment reviewed HPI Narrative: Mrs. Aleman is a 73 year-old woman who was brought via EMS due to concern about her ability to care for herself. MOCA completed today which pt scored 14/30- with significant impairment in executive function, visuospatial skills, attention, language fluency and abstraction. Note orientation is fairly intact- with only date off. ACL 3.4- showing significant concern in terms of her ability to live independently without ongoing supervision [facility] Medical History Alcohol use disorder, mild, abuse Confusion and disorientation Tubular adenoma of colon Cigarette smoker one half pack a day or less Restless leg syndrome Generalized anxiety disorder Essential hypertension Vitamin D deficiency Osteopenia of multiple sites Dyslipidemia Acquired hypothyroidism Surgical History History of loop electrosurgical excision procedure (LEEP) Diagnostics Vital Signs (24Hr): Vital Signs - 24 hr 08/18/23 22:00 08/19/23 06:35 08/19/23 13:49 Temperature 97.7 F 97.8 F 97.7 F Pulse Rate 62 57 65 Respiratory Rate 18 15 16 Blood Pressure 156/72 H 129/64 103/53 L Pulse Oximetry 95 95 94 Oxygen Delivery Method Room Air Room Air Room Air BMI result Body Mass Index 20.3 Labs 08/15/23 16:47 08/15/23 16:47 Mental Status Exam Mental Status Exam Narrative: Appearance: casually groomed, fair hygiene, in NAD Behavior: cooperative Psychomotor: no agitation or retardation noted. No tremors Speech: clear, normal rate/rhythm/volume, spontaneous TP: linear TC: no over psychosis, aware of situation and concerns from family Mood: good' Affect: congruent SI: none HI: none Delusions: none VH/AH: none Insight/judgment: fair x 2. Memory/cog: alert, oriented x 3. MOCA 14/30 severe impairment in executive function, visuo-spatial skills, attention, language fluency with fairly intact orientation Medications Medications Current Medications Albuterol Sulfate (Albuterol Sulfate 90 Mcg 8 Gm Inhaler) 2 puff INHALE Q4H PRN PRN Reason: dyspnea Metoprolol Succinate (Metoprolol Succinate Er 50 Mg Tab.Er.24h) 50 mg PO DAILY [facility]; Protocol Last Admin: 08/19/23 08:34 Dose: 50 mg Multivitamins/Vitamin C (Multivitamin Tablet) 1 tab PO DAILY [facility] Last Admin: 08/18/23 08:08 Dose: 1 tab Sertraline HCl (Sertraline Hcl 50 Mg Tablet) 150 mg PO DAILY [facility] Last Admin: 08/19/23 08:34 Dose: 150 mg Thiamine HCl (Thiamine Hcl 100 Mg Tablet) 100 mg PO DAILY [facility] Last Admin: 08/19/23 08:34 Dose: 100 mg Thyroid (Thyroid,Pork 30 Mg Tablet) 60 mg PO DAILY@0600 [facility] Last Admin: 08/19/23 06:16 Dose: 60 mg Allergies Allergies Allergy/AdvReac Type Severity Reaction Status Date / Time No Known Allergies Allergy Verified 07/16/23 09:33 [No Known Allergies*] Assessment & Plan Assessment & Plan (1) Major neurocognitive disorder: Status: Acute Code(s): F03.90 - Unspecified dementia, unspecified severity, without behavioral disturbance, psychotic disturbance, mood disturbance, and anxiety (2) Alcohol use disorder, mild, abuse: Status: Acute Code(s): F10.10 - Alcohol abuse, uncomplicated Plan Ms. Aleman is a 73 year-old woman brought in by family due to concerns in terms of her ability to care for herself. Pt superficially does not present as impaired, mostly because her orientation is fairly intact. However, as evaluation of different aspect of her memory and cognitive is evident that she has severe impairments in higher functions of the brain including executive function and visuospatial and ability to retain information. Moreover, ACL shows a much more significant impairment in terms of her functional level and ability to live independently in the community. ACL 3.4- requires significant supervision to live safely in the community- including 08/06 care. PLAN 1. will do head CT to complete medical work up 2. b12, folic acid levels. 3. I do suspect pt has major neurocognitive disorder- vascular type or multifactorial etiology. Total time managing care of this patient today ____ minutes.
[2023-08-19] MEDS: Acetaminophen 325 MG TABLET 650 MG PO (21:38)
[2023-08-20 02:48] LABS: Folate 4.6 ng/mL (> or = 4.0); Vitamin B12 415 pg/mL (200-900)
[2023-08-20] MEDS: Thyroid,Pork 30 MG TABLET 60 MG PO (05:12)
[2023-08-20 05:23] VITALS: BP 147/68; PULSE 55; RESP 15; TEMP 36.4; O2SAT 98
[2023-08-20 07:34] VITALS: BP 132/63; PULSE 53; RESP 16; TEMP 36.5; O2SAT 97
[2023-08-20] MEDS: Thiamine HCL 100 MG TABLET PO (07:37)
[2023-08-20] MEDS: Multivitamin TABLET 1 TAB PO (07:37)
--- NOTE | 2023-08-20 11:51 | PC.NURSE ---
Addendum entered by Senia Felix RN 08/20/23 11:57: Che GIRALDO notified. Original Note: Daughter Forrest called states needs stitches taken out in mouth had an appointment on with dentist to get them removed on 08/10. Also asking for nicotine gum.
--- NOTE | 2023-08-20 12:49 | MHC.CM.ED ---
Patient remains in ER overflow. [facility] is able to offer a bed. Spoke with patient's daughter/HCP, Forrest, via telephone at [phone]. [facility] accepts bed. [facility] is in the process of obtaining insurance auth. Continue to monitor for d/c needs.
[2023-08-20 14:59] VITALS: BP 110/54; PULSE 63; RESP 17; TEMP 36.5; O2SAT 98
[2023-08-20 21:03] VITALS: BP 114/56; PULSE 66; RESP 16; TEMP 37.1; O2SAT 96
[2023-08-21 06:00] VITALS: BP 166/65; PULSE 60; RESP 16; TEMP 36.4; O2SAT 97
[2023-08-21] MEDS: Thiamine HCL 100 MG TABLET PO (07:53)
[2023-08-21] MEDS: Acetaminophen 325 MG TABLET 650 MG PO (07:58)
--- NOTE | 2023-08-21 12:04 | MHC.CM.ED ---
Patient remains in ER Overflow. [facility] has obtained insurance auth. Transportation until to be arranged until tomorrow 08/22 at 10am with Mark ALTAMIRANO. [facility] with chart. Patient, daughter Lety Clayton RN and Krissy GIRALDO aware. Continue to monitor for d/c needs.
[2023-08-21 15:30] VITALS: BP 112/58; PULSE 66; RESP 15; TEMP 36.1; O2SAT 95
--- NOTE | 2023-08-21 19:43 | PC.NURSE ---
Pt ambulated to the restroom. Pt requested and given ice. Plan of care ongoing.
--- NOTE | 2023-08-21 20:08 | PC.NURSE ---
Pt requested and given water. Plan of care ongoing.
[2023-08-21 22:00] VITALS: BP 112/75; PULSE 98; RESP 18; TEMP 36.6; O2SAT 96
[2023-08-22 06:00] VITALS: BP 108/75; PULSE 100; RESP 18; TEMP 36.4; O2SAT 95
--- NOTE | 2023-08-22 06:10 | PC.NURSE ---
Patient c/o difficulty falling/staying asleep, asking for sleep medicine, provider notified. Frequently ambulating to the bathroom.
[2023-08-22] MEDS: Thiamine HCL 100 MG TABLET PO (10:12)
--- NOTE | 2023-08-22 14:37 | MHC.CM.PN ---
DP: PT DC TO [facility] VIA BLS VIA [facility]. COMPLETED ED NOTE SENT VIA [facility] AND FAX ( )
== END 2023-08-22 11:17 | disposition skilled nursing facility (03) ==
PROVIDERS: Social Worker; Emergency Provider Emergency Medicine; PCP Internal Medicine
DX: F10.10 Alcohol abuse, uncomplicated (principal); F03.90 Unspecified dementia, unspecified severity, without behavioral disturbance, psychotic disturbance, mood disturbance, and anxiety; R41.0 Disorientation, unspecified; F41.1 Generalized anxiety disorder; I10 Essential (primary) hypertension; E78.5 Hyperlipidemia, unspecified; F17.210 Nicotine dependence, cigarettes, uncomplicated; Z79.899 Other long term (current) drug therapy
CPT/HCPCS: 36415; 70450; 80048; 80076; 80307; 81001; 82607; 82746; 83735; 84439; 85025; 87086; 93005; 99285; S9485

== ENCOUNTER → 2023-08-15 15:25 | Outpatient (BNV) | payer OTHER, SELFPAY | PROVIDERS: Emergency Provider Emergency Medicine; PCP Internal Medicine; Visit Provider Social Worker | DX: F03.90 Unspecified dementia, unspecified severity, without behavioral disturbance, psychotic disturbance, mood disturbance, and anxiety (principal); F10.10 Alcohol abuse, uncomplicated | CPT/HCPCS: 99285 ==

== ENCOUNTER 2024-03-22 09:02 | Outpatient (AMB) | payer OTHER, SELFPAY ==
[2024-03-22 09:09] VITALS: BP 130/70; PULSE 72; O2SAT 98; BMI 21.3
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
== END 2024-03-22 11:17 | disposition home or self-care (01) ==
PROVIDERS: Visit Provider Internal Medicine
DX: E03.9 Hypothyroidism, unspecified (principal); F03.90 Unspecified dementia, unspecified severity, without behavioral disturbance, psychotic disturbance, mood disturbance, and anxiety; E78.5 Hyperlipidemia, unspecified; M85.89 Other specified disorders of bone density and structure, multiple sites; I10 Essential (primary) hypertension; F41.1 Generalized anxiety disorder; R41.0 Disorientation, unspecified; L98.9 Disorder of the skin and subcutaneous tissue, unspecified; R19.7 Diarrhea, unspecified
CPT/HCPCS: 99214

== ENCOUNTER 2024-03-22 10:19 | Outpatient (REF) | payer OTHER, SELFPAY ==
[2024-03-22 13:17] LABS: MANUAL DIFF FLAG NO
[2024-03-22 13:36] LABS: Basophils Absolute Auto 0.1 X10*3/uL (0.0-0.2); Basophils Percent Auto 1.4 % (0-2); Eosinophils Absolute Auto 0.1 X10*3/uL (0.0-0.4); Eosinophils Percent Auto 1.7 % (0-4); Hematocrit 43.7 % (37.0-47.0); Hemoglobin 14.6 g/dl (12.0-16.0); Imm Gran Abs Auto 0.02 X10*3/uL (0.00-0.03); Imm Gran Pct Auto 0.3 % (0.0-0.4); Lymphocytes Absolute Auto 1.4 X10*3/uL (1.2-4.9); Lymphocytes Percent Auto 22.9 % (20-40); Mean Corpuscular HGB Conc 33.4 g/dl (31.0-35.0); Mean Corpuscular Hemoglobin 31.8 pg (27.0-33.0); Mean Corpuscular Volume 95.2 fL (80.0-98.0); Mean Platelet Volume 10.8 fL (9.4-12.3); Monocytes Absolute Auto 0.4 X10*3/uL (0.1-1.2); Monocytes Percent Auto 6.8 % (2-11); Neutrophils Absolute Auto 3.9 x10*3/uL (2.0-8.3); Neutrophils Percent Auto 66.9 % (45-73); Platelet Count 212 X10*3/uL (160-400); Red Blood Count 4.59 X10*6/uL (4.20-5.50); Red Cell Distribution Width 12.7 % (11.0-16.0); White Blood Count 5.9 X10*3/uL (4.8-10.8)
[2024-03-22 14:05] LABS: Alanine Aminotransferase 12 U/L (0-31); Albumin Level 4.1 g/dL (3.5-5.0); Alkaline Phosphatase 42 U/L (39-117); Anion Gap 13 (12-20); Aspartate Amino Transferase 17 U/L (5-31); Bilirubin Total 0.4 mg/dL (0.0-1.0); Blood Urea Nitrogen 16 mg/dL (9-16); Calcium 9.6 mg/dL (8.4-10.2); Carbon Dioxide 31 mmol/L (22-29); Chloride 102 mmol/L (96-108); Cholesterol 283 mg/dL (<200); Estimated Glomerular Filt Rate > 60; Glucose Fasting 91 mg/dL (60-99); HDL Cholesterol 83 mg/dL (>40); LDL Cholesterol Calculated 184 mg/dL (<100); Potassium 3.9 mmol/L (3.3-5.1); Sodium 142 mmol/L (135-145); Triglycerides 84 mg/dL (<150)
[2024-03-22 14:18] LABS: Folate 7.3 ng/mL (> or = 4.0); Vitamin B12 565 pg/mL (200-900)
[2024-03-22 14:19] LABS: Free T4 (Free Thyroxine) < 0.42 ng/dL (0.71-1.85); Thyroid Stimulating Hormone 48.58 uIU/mL (0.32-4.0); Vitamin D 25-OH Total 27.3 ng/mL (>30)
[2024-03-24 17:28] LABS: Immunoglobulin A 340 mg/dL (70-320); Transglutaminase IgA <1.0 U/mL
[2024-03-25 05:54] LABS: Thyroid Peroxidase Antibodies 133 IU/mL (<9)
== END 2024-03-22 10:20 | disposition home or self-care (01) ==
LOC: HO.HMGCLDS 10:19
PROVIDERS: PCP Internal Medicine; Visit Provider Internal Medicine
DX: A04.72 Enterocolitis due to Clostridium difficile, not specified as recurrent (principal); R41.0 Disorientation, unspecified; I10 Essential (primary) hypertension; M85.89 Other specified disorders of bone density and structure, multiple sites; E78.5 Hyperlipidemia, unspecified; E03.9 Hypothyroidism, unspecified; F03.90 Unspecified dementia, unspecified severity, without behavioral disturbance, psychotic disturbance, mood disturbance, and anxiety; F41.1 Generalized anxiety disorder
CPT/HCPCS: 36415; 80053; 80061; 82306; 82607; 82746; 82784; 84439; 84443; 85025; 86364; 86376

== ENCOUNTER 2024-05-03 09:36 | Outpatient (REF) | payer OTHER, SELFPAY ==
--- NOTE | ~2024-05-03 | MM_ITS ---
EXAMINATION: BONE DENSITOMETRY CLINICAL INDICATION: Other specified disorders of bone density and structure. COMPARISON: Previous BD dated 10/29/2020 and baseline BD dated 12/26/2008. TECHNIQUE: Using a [employer] DXA System (software version: 13.1) manufactured by [email or web address], dual-energy x-ray absorptiometry was performed of the lumbar spine and left hip. The images are of good technical quality. Summary results are attached. FINDINGS: LEFT FEMUR, NECK: Current: BMD 0.605 g/cm2, Z-score -1.2, T-score -3.1, osteoporosis. Prior: BMD 0.824 g/cm2. Baseline: BMD 0.915 g/cm2. LEFT FEMUR, TOTAL: Current: BMD 0.581 g/cm2, Z-score -1.6, T-score -3.4, osteoporosis, 30.1% decrease from previous, 36.8% decrease from baseline (<5% change is not significant). Prior: BMD 0.831 g/cm2. Baseline: BMD 0.920 g/cm2. AP SPINE L1-L4: Current: BMD 0.724 g/cm2, Z-score -1.8, T-score -3.8, osteoporosis, 21.6% decrease from previous, 31.8% decrease from baseline (<5% change is not significant). Prior: BMD 0.923 g/cm2. Baseline: BMD 1.062 g/cm2. IDENTIFIED RISK FACTORS: Menopause, dementia, height loss. HISTORY OF FRACTURE: None listed. MEDICATIONS: None listed. MM/XR DEXA axial skeleton IMPRESSION: 1. DIAGNOSIS: Osteoporosis based on the lowest T-score value of -3.8 in the lumbar spine applying World Health Organization criteria. 2. 10-YEAR FRACTURE RISK PREDICTION, FRAX: According to the guidelines, FRAX calculation should only be performed on patients in the osteopenia bone density category. Therefore, FRAX was not performed on this patient. 3. Treatment Recommendations: NOF guidelines recommend consideration for treatment in postmenopausal women and men age 50 and older presenting with the following: -A hip or vertebral (clinical or morphometric) fracture. -T-score less than or equal to -2.5 at the femoral neck or spine after appropriate evaluation to exclude secondary causes. -Low bone mass at the hip or spine and a 10-year fracture probability by FRAX of greater than or equal to 3% for hip fracture or greater than or equal to 20% for major osteoporotic fracture based on the [place] adapted WHO algorithm. 4. Other Recommendations: All treatment decisions require clinical judgment and consideration of individual patient factors, including patient preferences, comorbidities, previous drug use, risk factors not captured in the FRAX model (e.g. frailty, falls, vitamin D deficiency, increased bone turnover, interval significant decline in bone density) and possible under or overestimation of fracture risk by FRAX. Additional medical evaluation for secondary cause of low bone mineral density may be appropriate. FUTURE SCAN RECOMMENDATION: People with diagnosed cases of osteoporosis or at high risk for fracture should have regular bone mineral density tests. For patients eligible for Medicare, routine testing is allowed once every 2 years. The testing frequency can be increased to one year for patients who have rapidly progressing disease, those who are receiving or discontinuing medical therapy to restore bone mass, or have additional risk factors.
== END 2024-05-03 09:37 | disposition home or self-care (01) ==
LOC: HO.MAMMO 09:36
PROVIDERS: PCP Internal Medicine; Visit Provider Internal Medicine
DX: Z12.31 Encounter for screening mammogram for malignant neoplasm of breast (principal); Z13.820 Encounter for screening for osteoporosis; M85.89 Other specified disorders of bone density and structure, multiple sites; Z78.0 Asymptomatic menopausal state
CPT/HCPCS: 77063; 77067; 77080

== ENCOUNTER → 2024-05-03 10:00 | Outpatient (BNV) | payer OTHER, SELFPAY | PROVIDERS: PCP Internal Medicine; Visit Provider Radiology Diagnostic Radiology | DX: Z12.31 Encounter for screening mammogram for malignant neoplasm of breast (principal) | CPT/HCPCS: 77063; 77067 ==

== ENCOUNTER 2024-06-02 10:29 | Outpatient (REF) | payer OTHER, SELFPAY ==
[2024-06-02 13:43] LABS: Alanine Aminotransferase 21 U/L (0-31); Anion Gap 14 (12-20); Aspartate Amino Transferase 19 U/L (5-31); Blood Urea Nitrogen 20 mg/dL (9-16); Calcium 9.4 mg/dL (8.4-10.2); Carbon Dioxide 29 mmol/L (22-29); Chloride 104 mmol/L (96-108); Cholesterol 200 mg/dL (<200); Estimated Glomerular Filt Rate 59; Glucose Fasting 98 mg/dL (60-99); HDL Cholesterol 77 mg/dL (>40); LDL Cholesterol Calculated 110 mg/dL (<100); Potassium 4.3 mmol/L (3.3-5.1); Sodium 143 mmol/L (135-145); Triglycerides 65 mg/dL (<150)
[2024-06-02 14:12] LABS: Free T4 (Free Thyroxine) 0.56 ng/dL (0.71-1.85); Thyroid Stimulating Hormone 38.57 uIU/mL (0.32-4.0)
== END 2024-06-02 10:30 | disposition home or self-care (01) ==
LOC: HO.HMGCLDS 10:29
PROVIDERS: PCP Internal Medicine; Visit Provider Internal Medicine
DX: E55.9 Vitamin D deficiency, unspecified (principal); I10 Essential (primary) hypertension; M85.89 Other specified disorders of bone density and structure, multiple sites; E78.5 Hyperlipidemia, unspecified; E03.9 Hypothyroidism, unspecified
CPT/HCPCS: 36415; 80048; 80061; 82306; 84439; 84443; 84450; 84460

== ENCOUNTER 2024-12-15 09:16 | Outpatient (REF) | payer OTHER, SELFPAY ==
[2024-12-15 14:00] LABS: Alanine Aminotransferase 18 U/L (0-31); Anion Gap 12 (12-20); Aspartate Amino Transferase 26 U/L (5-31); Blood Urea Nitrogen 14 mg/dL (9-16); Carbon Dioxide 29 mmol/L (22-29); Chloride 107 mmol/L (96-108); Cholesterol 158 mg/dL (<200); Estimated Glomerular Filt Rate > 60; Glucose Fasting 99 mg/dL (60-99); HDL Cholesterol 59 mg/dL (>40); LDL Cholesterol Calculated 85 mg/dL (<100); Potassium 4.5 mmol/L (3.3-5.1); Sodium 143 mmol/L (135-145); Triglycerides 74 mg/dL (<150)
[2024-12-15 14:18] LABS: Free T4 (Free Thyroxine) 1.44 ng/dL (0.71-1.85); Thyroid Stimulating Hormone 0.36 uIU/mL (0.32-4.0); Vitamin D 25-OH Total 67.2 ng/mL (>30)
== END 2024-12-15 09:17 | disposition home or self-care (01) ==
LOC: HO.HMGCLDS 09:16
PROVIDERS: PCP Internal Medicine; Visit Provider Internal Medicine
DX: I10 Essential (primary) hypertension (principal); E55.9 Vitamin D deficiency, unspecified; M85.89 Other specified disorders of bone density and structure, multiple sites; E78.5 Hyperlipidemia, unspecified; E03.9 Hypothyroidism, unspecified
CPT/HCPCS: 36415; 80048; 80061; 82306; 84439; 84443; 84450; 84460; 96127; 99212

== ENCOUNTER 2024-12-15 09:16 | Outpatient (AMB) | payer OTHER, SELFPAY ==
[2024-12-15 09:22] VITALS: BP 130/74; PULSE 67; RESP 16; TEMP 36.3; O2SAT 97; BMI 22.0
--- NOTE | 2024-12-15 09:22 | MHC.PC.OV ---
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) Allergies No Known Allergies [No Known Allergies*] Allergy (Verified 12/15/24 09:53) Medication List - Last Reconciled 12/15/24 by Yenni Araujo MD cholecalciferol (vitamin D3) 50 mcg PO DAILY levothyroxine 75 mcg PO DAILY melatonin 10 mg PO BEDTIME metoprolol succinate ER 50 mg PO DAILY rosuvastatin 5 mg PO Q2D 3 months sertraline 150 mg (1.5 x 100 mg) PO DAILY Tobacco use date assessed: 12/15/24 Fall risk assessment: No Falls in past year Last assessed Fall Risk: 12/15/24 Dental Screening Dental Screen Date: 12/15/24 Did you have a dental visit in the last 12 months?: No Did you have a dental problem in the last 6 months where you did not have access to dental care?: No Was dental information given to patient?: Patient has dentist HPI follow-up thyroid HPI Details - The patient is a 74-year-old female presenting for follow-up concerns regarding thyroid management, memory impairment, and osteoporotic evaluation. - Status post-thyroidectomy, the patient is currently on thyroid hormone replacement. Recent discussions focused on ensuring proper timing of medication intake relative to food and other medications. 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 - Severe osteoporosis identified in the spine and femur remains untreated, requiring specialist referral. - Anxiety and major depressive disorder under management with sertraline, producing positive benefits in anxiety levels. - Noted that the patient had two colon polyps removed in 2019, necessitating an updated colonoscopy, particularly given the previous pre-cancerous finding. - Lives in an assisted living facility, [facility], where medications are administered. - Participates in exercise programs at the facility. - Engages in occasional social activities, demonstrating a supportive social environment. - Reports having smoked very rarely, averaging one cigarette every six months, and currently does not use nicotine gum. 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 [facility] Medical History (Updated 12/18/24 @ 12:43 by Yenni Araujo MD) Frontotemporal dementia Osteoporosis History of adenomatous polyp of colon Lesion of skin of face Alcohol use disorder, mild, abuse Confusion and disorientation Tubular adenoma of colon Cigarette smoker one half pack a day or less Restless leg syndrome Generalized anxiety disorder Essential hypertension Vitamin D deficiency Dyslipidemia Acquired hypothyroidism Surgical History History of loop electrosurgical excision procedure (LEEP) Family History Father Pneumonia Alcoholism Substance use disorder Mother Type 2 diabetes mellitus Skin cancer Brother Substance use disorder Sister Colon cancer Sister No problems noted. Daughter Mental health disorder Daughter Mental health disorder Maternal Uncle Mental health disorder Paternal Uncle Alcoholism Social History Housing: House Alcohol intake: current Alcohol intake frequency: 0-2 drinks per day Alcohol type: beer Patient Tobacco Use Status: Former Tobacco user e-Cigarette/Vaping Use: Never Used Advance Directives Date on File: 08/19/23 service: No Current occupational status: retired Cognitive needs: Yes Hearing needs: No Vision needs: Yes Questionnaire PHQ-9 Over the last 2 weeks, how often have you been bothered by any of the following problems? 1. Little interest or pleasure in doing things: not at all 2. Feeling down, depressed, or hopeless: not at all 3. Trouble falling or staying asleep, or sleeping too much: not at all 4. Feeling tired or having little energy: not at all 5. Poor appetite or overeating: not at all 6. Feeling bad about yourself - or that you are a failure or have let yourself or your family down: not at all 7. Trouble concentrating on things, such as reading the newspaper or watching television: not at all 8. Moving or speaking so slowly that other people could have noticed. Or the opposite - being so fidgety or restless that you have been moving around a lot more than usual: not at all 9. Thoughts that you would be better off or of hurting yourself in some way: not at all Total score: 0 Depression Screening Interpretation: Negative Depression Screening Done: Yes [id number] - PHQ-9 Billing: Yes Source: Developed by Drs. Otf Tovar, Chloé Han, Branden Downey and colleagues, with an educational mauricio from [employer]. Thrive Questionnaire Date Thrive assessed: 12/15/24 I am a: Parent/Caregiver What is your living situation today?: I have a steady place to live Within the past 12 months, did the food you bought not last and you didn't have the money to get more?: Never true Within the past 12 months, did you worry whether your food would run out before you got money to buy more?: Never true Do you have trouble paying for medicines?: No Do you have trouble getting transportation to medical appointments?: No Do you have trouble paying your heating and electricity bill?: No Do you have trouble taking care of your child, family member or friend?: No Do you have trouble with day-to-day activities such as bathing, preparing meals, shopping, managing finances, etc.?: Yes Are you currently unemployed and looking for a job?: No Are you interested in more education?: No Please select the resources that you would like help with: None Currently or been in a relationship where the following occur: No concerns reported THRIVE Score: 0 AUDIT C Alcohol Use Questionnaire (AUDIT-C) 1. How often do you have a drink containing alcohol?: Never Total Score: 0 EDMUND-7 AMB Questionnaire EDMUND-7 Date EDMUND - 7 assessed: 12/15/24 Feeling nervous, anxious, or on edge: 1 = Several days Not being able to stop or control worryin = Not at all Worrying too much about different things: 0 = Not at all Trouble relaxin = Not at all Being so restless that it is hard to sit still: 0 = Not at all Becoming easily annoyed or irritable: 0 = Not at all Feeling afraid as if something awful might happen: 0 = Not at all Total EDMUND-7 score (0-4 normal; 5-9 mild; 10-14 moderate; 15-21 severe): 1 Source: Developed by Chloé Farnsworth, Branden Downey and colleagues, with an educational mauricio from [employer]. EDMUND-7 Assessment Billing EDMUND-7 Assessment Tool: EDMUND-7 Assessment 50814 Review of Systems Const Details: -HEENT:denies any dysphagia, no nasal congestion , no rhinorrhea -Cardiovascular :denies chest pain, no palpitations -respiratory: denies cough, no shortness of breath - Neurological: Denies new or worsening symptoms beyond noted memory and executive function issues. - Psychiatric: Reports stabilized anxiety levels; no new psychological concerns. - Gastrointestinal: Denies irregular bowel movements; digestion appears stable. - Musculoskeletal: Denies falls or new weakness. Neuro Denies Abnormal speech present Physical exam (Primary Care) Vital Signs: Last Vital Signs Temp 97.4 F 12/15/24 09:22 Pulse 67 12/15/24 09:22 Resp 16 12/15/24 09:22 BP 130/74 12/15/24 09:22 Pulse Ox 97 12/15/24 09:22 Oxygen Delivery Method Room Air 12/15/24 09:22 BMI result Body Mass Index 22.0 Tobacco/Smoking Status: Tobacco use Status Tobacco use date assessed 12/15/24 12/15/24 09:39 Patient Tobacco Use Status Former Tobacco user 12/15/24 09:25 Tobacco use type 03/25/24 14:43 e-Cigarette/Vaping Use Never Used 12/15/24 09:25 PHQ-9: PHQ-9 Score PHQ-9: Total score 0 12/15/24 10:19 Depression Screening Interpretation: Negative Thrive Assessment: Date of Thrive Assessment Date Thrive assessed 12/15/24 12/15/24 09:39 Currently or been in a relationship where the following occur: No concerns reported Const Other: Alert oriented x3, no acute distress , ambulatory with normal gait, daughter accompanying patient Orientation/consciousness: patient oriented x3 HENTX Head: Yes normocephalic Ears: hearing grossly normal bilaterally General nose exam: Normal external nose present Face and sinus: Yes face symmetric Mouth: Normal oral and palatal mucosa present and moist mucous membranes Eyes General: appearance normal, both eyes and all related structures Neck Other: Supple, no lymphadenopathy, thyroid gland nonpalpable Chest Breast/axilla palpation: normal palpation of the breasts Resp Auscultation: clear to auscultation bilaterally Cardio Other: S1-S2 present regular rate and rhythm GI Other: Normal bowel sounds, soft, nontender, no mass palpated Back/Spine/Pelvis Back: No back tenderness Neuro General: patient oriented x3, gait normal, tone normal, moves all extremities, Normal light touch and pain sensation, no focal motor deficits and CN's II-XI intact bilaterally Speech: No Abnormal speech present Gait exam (Neuro): Normal gait present and Other gait observations present (Able to do tandem walk) Motor exam (neuro): 5/5 motor strength present throughout Romberg Test: Negative Extrem General: Yes full ROM, Yes no joint enlargement and Yes no clubbing, cyanosis or edema Psych Appearance: grossly normal and well kempt Mental Status: mental status grossly normal Speech and movement: Normal speech and movement present Affect: normal affect Attitude: cooperative Thought process: Normal thought process present Results Reviewed Results Reviewed: - Labs: Vitamin D level previously normal at 99 as of May last year. - Previous osteoporotic diagnosis showed T-scores of -3.1 and -3.4 in femur and spine, indicative of severe osteoporosis. - 2019 colonoscopy removed two polyps: one pre-cancerous, one benign. Coding Level of Care Code Est Pt Level 4 (05659) Complex EM visit Add On G2211 Diagnoses Age-related osteoporosis without current pathological fracture M81.0 Osteoporosis type: age-related Presence of current pathological fracture: without current pathological fracture Acquired hypothyroidism E03.9 Frontotemporal dementia G31.09; F02.80 History of adenomatous polyp of colon Z86.0101 Generalized anxiety disorder F41.1 Essential hypertension I10 Dyslipidemia E78.5 Additional Codes PHQ-9 - 75459 - PHQ-9 Billing: Yes ([id number]) EDMUND-7 Assessment Billing - EDMUND-7 Assessment Tool: EDMUND-7 Assessment [id number] ([id number]) Assessment & Plan Assessment & Plan (1) Osteoporosis: Code(s): M81.0 - Age-related osteoporosis without current pathological fracture Category: Medical Qualifiers: Osteoporosis type: age-related Presence of current pathological fracture: without current pathological fracture Qualified Code(s): M81.0 - Age-related osteoporosis without current pathological fracture (2) Acquired hypothyroidism: Code(s): E03.9 - Hypothyroidism, unspecified Category: Medical (3) Frontotemporal dementia: Code(s): G31.09 - Other frontotemporal neurocognitive disorder; F02.80 - Dementia in other diseases classified elsewhere, unspecified severity, without behavioral disturbance, psychotic disturbance, mood disturbance, and anxiety Category: Medical (4) History of adenomatous polyp of colon: Code(s): Z86.0101 - Personal history of adenomatous and serrated colon polyps Category: Medical (5) Generalized anxiety disorder: Comment: previously ff'd by Marshall Aggarwal at [facility] Code(s): F41.1 - Generalized anxiety disorder Category: Medical (6) Essential hypertension: Code(s): I10 - Essential (primary) hypertension Category: Medical (7) Dyslipidemia: Code(s): E78.5 - Hyperlipidemia, unspecified Category: Medical Plan A comprehensive approach is needed to address the patient's multiple health concerns. The thyroid status post-thyroidectomy warrants careful observation and adherence to the exact medication schedule for optimal effectiveness. Memory issues require close coordination with neurology, especially considering suspected FTD. Osteoporotic management needs a specialist consultation to identify appropriate therapeutic options given the severity of bone density results. The management of anxiety and depression will continue as current medications appear effective. Ensuring colonoscopy follow-up this year is crucial due to past findings. Preventative strategies include confirmation of vaccination status and lifestyle modification encouragement. The medication delivery plan is to persist, safeguarding that cycles are uninterrupted and taken as prescribed. - Take thyroid medication one hour before breakfast and before taking other medication, ordered thyroid levels to be repeated - Continue sertraline as prescribed, monitor any mood changes. - Follow up with neurology for memory impairment oversight and report any significant changes. - Ensure timely screening for bone density and endocrine consult ordered - referred to GI for repeat colonoscopy. - Engage in exercise regularly within the assisted living facility, continue with vitamin-D 3 at 50 mcg daily. - Abstain from smoking where possible. - Monitor vaccination status, including COVID and flu vaccines. - Schedule next follow-up appointment in six months. Patient was informed and verbally consented to the use of an ambient scribe for clinic note documentation during this visit. Orders: Referrals Gastroenterology Referral Z86.0101 - Personal history of adenomatous and serrated colon polyps Endocrinology Referral E03.9 - Hypothyroidism, unspecified, M81.0 - Age-related osteoporosis without current pathological fracture
== END 2024-12-15 10:23 | disposition home or self-care (01) ==
PROVIDERS: PCP Internal Medicine; Visit Provider Internal Medicine
DX: M81.0 Age-related osteoporosis without current pathological fracture (principal); E03.9 Hypothyroidism, unspecified; G31.09 Other frontotemporal neurocognitive disorder; F02.80 Dementia in other diseases classified elsewhere, unspecified severity, without behavioral disturbance, psychotic disturbance, mood disturbance, and anxiety; Z86.0101 Personal history of adenomatous and serrated colon polyps; F41.1 Generalized anxiety disorder; I10 Essential (primary) hypertension; E78.5 Hyperlipidemia, unspecified

== ENCOUNTER 2024-12-29 10:53 | Outpatient (AMB) | payer OTHER, SELFPAY ==
--- NOTE | 2024-12-29 11:03 | A.OFFVIS_ITS ---
Vital Signs 12/29/24 11:11 Height 5 ft 4.17 in Weight 127 lb 3.307 oz BMI 21.7 BP 126/74 Blood Pressure Location Rt brachial Position Sitting Pulse 67 Pulse Source Pulse Oximeter Pulse Oximetry (%) 99 Oxygen Delivery Method Room Air Intake Visit Reasons: Age-related osteoporosis, hypothyroidism Intake Note: Pt present today for osteoarthritis and hypothyroidism. 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 First diagnosed in recently .Not seen specialist before . Not Received treatment in the past No history of pathologic fracture or ONJ. Has several servings of dietary calcium per day. Not Takes Calcium supplement Takes 2000 IU of Vitamin D daily. Denies ever using PPI, anticoagulant, antiepileptic or glucocorticoid medication. Does weight bearing exercise 7 days per week in the form of exercise class at assisted living . 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 UTD on dental cleanings and sees dentist every 6 months. No planned upcoming dental work or extractions. Tabacco use in past DXA dated 05/03/24 :FINDINGS: LEFT FEMUR, NECK: Current: BMD 0.605 g/cm2, Z-score -1.2, T-score -3.1, osteoporosis. Prior: BMD 0.824 g/cm2. Baseline: BMD 0.915 g/cm2. LEFT FEMUR, TOTAL: Current: BMD 0.581 g/cm2, Z-score -1.6, T-score -3.4, osteoporosis, 30.1% decrease from previous, 36.8% decrease from baseline (<5% change is not significant). Prior: BMD 0.831 g/cm2. Baseline: BMD 0.920 g/cm2. AP SPINE L1-L4: Current: BMD 0.724 g/cm2, Z-score -1.8, T-score -3.8, osteoporosis, 21.6% decrease from previous, 31.8% decrease from baseline (<5% change is not significant). Prior: BMD 0.923 g/cm2. Baseline: BMD 1.062 g/cm2. IDENTIFIED RISK FACTORS: Menopause, dementia, height loss. HISTORY OF FRACTURE: None listed. MEDICATIONS: None listed. MM/XR DEXA axial skeleton IMPRESSION: 1. DIAGNOSIS: Osteoporosis based on the lowest T-score value of -3.8 in the lumbar spine applying World Health Organization criteria. Also on 75 mcg levothyroxine Labs: [facility] Medical History (Updated 12/18/24 @ 12:43 by Yenni Araujo MD) Frontotemporal dementia Osteoporosis History of adenomatous polyp of colon Lesion of skin of face Alcohol use disorder, mild, abuse Confusion and disorientation Tubular adenoma of colon Cigarette smoker one half pack a day or less Restless leg syndrome Generalized anxiety disorder Essential hypertension Vitamin D deficiency Dyslipidemia Acquired hypothyroidism Surgical History History of loop electrosurgical excision procedure (LEEP) Family History Father Pneumonia Alcoholism Substance use disorder Mother Type 2 diabetes mellitus Skin cancer Brother Substance use disorder Sister Colon cancer Sister No problems noted. Daughter Mental health disorder Daughter Mental health disorder Maternal Uncle Mental health disorder Paternal Uncle Alcoholism Social History Housing: House Alcohol intake: current Alcohol intake frequency: 0-2 drinks per day Alcohol type: beer Patient Tobacco Use Status: Former Tobacco user e-Cigarette/Vaping Use: Never Used Advance Directives Date on File: 08/19/23 service: No Current occupational status: retired Cognitive needs: Yes Hearing needs: No Vision needs: Yes Physical Exam Vital Signs: Last Vital Signs Pulse 67 12/29/24 11:11 BP 126/74 12/29/24 11:11 Pulse Ox 99 12/29/24 11:11 Oxygen Delivery Method Room Air 12/29/24 11:11 BMI result Body Mass Index 21.7 There are no Cushingoid features. Absence of blue sclera. Presence of mild kyphosis. Thyroid gland is of nl size and weighs 15 gms. There are no thyroid nodules palpated. Lungs CTA. Heart S1 S2 Reg R/R Abdominal exam benign. Muscle strength 5/5 . Examination of spine reveals absence of tenderness on palpation Assessment & Plan Assessment & Plan (1) Osteoporosis: Code(s): M81.0 - Age-related osteoporosis without current pathological fracture Category: Medical Qualifiers: Osteoporosis type: age-related Presence of current pathological fracture: without current pathological fracture Qualified Code(s): M81.0 - Age- related osteoporosis without current pathological fracture Plan: This is a 74-year-old white female with a history of moderate to severe osteoporosis. Partial secondary workup has been performed Will complete secondary workup by checking phosphorus level, SPEP, urine immunofixation, 24 hour urine for calcium and creatinine. Will ensure 1200 mg of calcium and continue vitamin-D supplementation. Assuming secondary workup was negative would strongly consider use of anabolic agent initially such as Evenity proceeded by anti resorptive agent considering very low bone density and high risk for fracture (2) Acquired hypothyroidism: Code(s): E03.9 - Hypothyroidism, unspecified Category: Medical Plan: Clinically and biochemically euthyroid on levothyroxine 75 mcg. Plan is to continue current management. In terms of the hypothyroidism, patient returned to the care of her primary care provider and returned back to endocrinology as needed Coding Level of Care Code New Pt Level 4 (90287) Diagnoses Age-related osteoporosis without current pathological fracture M81.0 Osteoporosis type: age-related Presence of current pathological fracture: without current pathological fracture Acquired hypothyroidism E03.9
[2024-12-29 11:11] VITALS: BP 126/74; PULSE 67; O2SAT 99; BMI 21.7
== END 2024-12-29 11:50 | disposition home or self-care (01) ==
PROVIDERS: PCP Internal Medicine; Visit Provider Internal Medicine Endocrinology, Diabetes & Metabolism
DX: M81.0 Age-related osteoporosis without current pathological fracture (principal); E03.9 Hypothyroidism, unspecified
CPT/HCPCS: 99204

== ENCOUNTER → 2024-12-29 10:53 | Outpatient (BNVA) | payer OTHER, SELFPAY | PROVIDERS: PCP Internal Medicine; Visit Provider Internal Medicine Endocrinology, Diabetes & Metabolism | DX: M81.0 Age-related osteoporosis without current pathological fracture (principal); E03.9 Hypothyroidism, unspecified | CPT/HCPCS: 99202 ==

== ENCOUNTER 2025-06-15 14:15 | Outpatient (AMB) | payer MEDICARE, OTHER, MEDICAID, SELFPAY ==
--- NOTE | 2025-06-15 14:18 | A.OFFPC_ITS ---
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: No Allergies No Known Allergies (No Known Allergies*) Allergy (Verified 06/15/25 15:05) Medication List - Last Reconciled 06/15/25 by Yenni Araujo MD cholecalciferol (vitamin D3) 50 mcg PO DAILY levothyroxine 75 mcg PO DAILY melatonin 10 mg PO BEDTIME metoprolol succinate ER 50 mg PO DAILY rosuvastatin 5 mg PO Q2D 3 months sertraline 150 mg (1.5 x 100 mg) PO DAILY Tobacco use date assessed: 12/15/24 Fall risk assessment: No Falls in past year Last assessed Fall Risk: 06/15/25 Dental Screening Dental Screen Date: 12/15/24 HPI ffup thyroid, htn , anxiety and lipids HPI Details 74-year-old lady diagnosed with frontote mporal dementia currently living in assisted living close at [facility] , here today accompanied by her 2 daughters Sánchez in [place], for follow-up on her hypertension, hypothyroidism, generalized anxiety disorder and dyslipidemia. Her last lipid level and thyroid levels drawn November 2024 showed results within normal limits, currently on levothyroxine 75 mcg daily and rosuvastatin 5 mg taken 1 tablet every other day.. Her blood pressure on today's visit showed a higher systolic blood pressure than last check, remains within acceptable limits. Currently taking metoprolol succinate ER 50 mg daily. She remains on sertraline 150 mg daily with no evidence of depression. She seems to have adjusted well on living in [facility] and her daughters are extremely supportive and involved in her care. She has an appointment with GI in August to discuss colonoscopy screening. Patient's daughters however our concerned if patient is able to do the colon proximal at her assisted living facility. She is currently being followed by Dr. Nichols for her osteoporosis. COUNTS INCLUDE 234 BEDS AT THE [facility] Medical History Frontotemporal dementia Osteoporosis History of adenomatous polyp of colon Alcohol use disorder, mild, abuse Cigarette smoker one half pack a day or less Generalized anxiety disorder Essential hypertension Vitamin D deficiency Dyslipidemia Acquired hypothyroidism Surgical History History of loop electrosurgical excision procedure (LEEP) Family History Father Pneumonia Alcoholism Substance use disorder Mother Type 2 diabetes mellitus Skin cancer Brother Substance use disorder Sister Colon cancer Sister No problems noted. Daughter Mental health disorder Daughter Mental health disorder Maternal Uncle Mental health disorder Paternal Uncle Alcoholism Social History Housing: House Alcohol intake: current Alcohol intake frequency: 0-2 drinks per day Alcohol type: beer Patient Tobacco Use Status: Former Tobacco user e-Cigarette/Vaping Use: Never Used Advance Directives Date on File: 08/19/23 service: No Current occupational status: retired Cognitive needs: Yes Hearing needs: No Vision needs: Yes Questionnaire Thrive Questionnaire Date Thrive assessed: 06/15/25 I am a: Parent/Caregiver What is your living situation today?: I have a steady place to live Within the past 12 months, did the food you bought not last and you didn't have the money to get more?: Never true Within the past 12 months, did you worry whether your food would run out before you got money to buy more?: Never true Do you have trouble paying for medicines?: No Do you have trouble getting transportation to medical appointments?: No Do you have trouble paying your heating and electricity bill?: No Do you have trouble taking care of your child, family member or friend?: No Do you have trouble with day-to-day activities such as bathing, preparing meals, shopping, managing finances, etc.?: Yes Are you currently unemployed and looking for a job?: No Are you interested in more education?: No Please select the resources that you would like help with: None Currently or been in a relationship where the following occur: No concerns reported THRIVE Score: 0 EDMUND-7 AMB Questionnaire EDMUND-7 Date EDMUND - 7 assessed: 12/15/24 Feeling nervous, anxious, or on edge: 0 = Not at all Not being able to stop or control worryin = Not at all Worrying too much about different things: 0 = Not at all Trouble relaxin = Not at all Being so restless that it is hard to sit still: 0 = Not at all Becoming easily annoyed or irritable: 0 = Not at all Feeling afraid as if something awful might happen: 0 = Not at all Total EDMUND-7 score (0-4 normal; 5-9 mild; 10-14 moderate; 15-21 severe): 0 Source: Developed by Drs. Otf Tovar, Chloé Han, Branden Downey and colleagues, with an educational mauricio from [employer]. EDMUND-7 Assessment Billing EDMUND-7 Assessment Tool: EDMUND-7 Assessment 52257 Review of Systems Const Denies body aches, Denies fatigue, Denies fever(s), Denies frequent falls, Denies headache(s) and Denies weakness Eyes Details: sees Dr Freeman Denies change in vision ENT Denies dizziness and Denies headache(s) Card Denies chest pain, Denies lightheadedness, Denies palpitations and Denies dyspnea Resp Denies cough and Denies dyspnea GI Denies abdominal pain, Denies change in bowel habits and Denies heartburn Denies urinary frequency, Denies dysuria and Denies urinary urgency Musc Denies back pain and Denies joint swelling Skin/Breast Denies lesions and Denies rash Neuro Denies Abnormal speech present, Denies dizziness, Denies frequent falls, Denies headache(s) and Denies weakness Psych Reports as per HPI Endo Denies fatigue, Denies polydipsia, Denies polyuria and Denies palpitations Velasquez/Lymph Denies easy bruising Aller/Immun Denies seasonal rhinorrhea Physical exam (Primary Care) Vital Signs: Last Vital Signs Pulse 67 06/15/25 14:20 BP 136/70 06/15/25 14:20 Pulse Ox 97 06/15/25 14:20 Oxygen Delivery Method Room Air 06/15/25 14:20 BMI result Body Mass Index 23.0 Tobacco/Smoking Status: Tobacco use Status Tobacco use date assessed 12/15/24 06/15/25 14:25 Patient Tobacco Use Status Former Tobacco user 06/15/25 14:25 Tobacco use type 03/25/24 14:43 e-Cigarette/Vaping Use Never Used 06/15/25 14:25 Thrive Assessment: Date of Thrive Assessment Date Thrive assessed 06/15/25 06/15/25 14:25 Currently or been in a relationship where the following occur: No concerns reported Const Other: Alert oriented x3, no acute distress , ambulatory with normal gait, daughter accompanying patient MARIZA Head: Yes normocephalic Ears: hearing grossly normal bilaterally General nose exam: Normal external nose present Face and sinus: Yes face symmetric Mouth: Normal oral and palatal mucosa present and moist mucous membranes Eyes General: appearance normal, both eyes and all related structures Neck Other: Supple, no lymphadenopathy, thyroid gland nonpalpable Resp Auscultation: clear to auscultation bilaterally Cardio Other: S1-S2 present regular rate and rhythm GI Other: Normal bowel sounds, soft, nontender, no mass palpated Back/Spine/Pelvis Back: No back tenderness Neuro General: gait normal, tone normal, moves all extremities, Normal light touch and pain sensation and no focal motor deficits Speech: No Abnormal speech present Gait exam (Neuro): Normal gait present Motor exam (neuro): 5/5 motor strength present throughout Romberg Test: Negative Extrem General: Yes full ROM, Yes no joint enlargement and Yes no clubbing, cyanosis or edema Psych Appearance: grossly normal and well kempt Mental Status: mental status grossly normal Speech and movement: Normal speech and movement present Affect: Blunted affect present Attitude: cooperative Coding Level of Care Code Est Pt Level 4 (96097) Diagnoses Acquired hypothyroidism E03.9 Dyslipidemia E78.5 Essential hypertension I10 History of adenomatous polyp of colon Z86.0101 Age-related osteoporosis without current pathological fracture M81.0 Osteoporosis type: age-related Presence of current pathological fracture: without current pathological fracture Frontotemporal dementia G31.09; F02.80 Generalized anxiety disorder F41.1 Additional Codes EDMUND-7 Assessment Billing - EDMUND-7 Assessment Tool: EDMUND-7 Assessment 66869 ([id number]) Assessment & Plan Assessment & Plan (1) Acquired hypothyroidism: Code(s): E03.9 - Hypothyroidism, unspecified Category: Medical Plan: Ordered a repeat TSH and free T4 level continued on current dose of levothy roxine 75 mcg daily (2) Dyslipidemia: Code(s): E78.5 - Hyperlipidemia, unspecified Category: Medical Plan: Fasting lipid panel, AST, ALT ordered today. Currently taking rosuvastatin 5 mg 1 tablet every other day, tolerating medication well (3) Essential hypertension: Code(s): I10 - Essential (primary) hypertension Category: Medical Plan: Basic metabolic panel ordered today (4) History of adenomatous polyp of colon: Code(s): Z86.0101 - Personal history of adenomatous and serrated colon polyps Category: Medical Plan: Hemoglobin hematocrit ordered today. Has an appointment for her cancer screening with GI in August 2025 (5) Osteoporosis: Code(s): M81.0 - Age-related osteoporosis without current pathological fracture Category: Medical Qualifiers: Osteoporosis type: age-related Presence of current pathological fracture: without current pathological fracture Qualified Code(s): M81.0 - Age- related osteoporosis without current pathological fracture Plan: Followed by Dr. Nichols (6) Frontotemporal dementia: Code(s): G31.09 - Other frontotemporal neurocognitive disorder; F02.80 - Dementia in other diseases classified elsewhere, unspecified severity, without behavioral disturbance, psychotic disturbance, mood disturbance, and anxiety Category: Medical Plan: Stable seen by [facility] neurology (7) Generalized anxiety disorder: Comment: previously ff'd by Marshall Aggarwal at [facility] Code(s): F41.1 - Generalized anxiety disorder Category: Medical Plan: Continued on sertraline 150 mg taken once a day Orders: Orders Free T4 (Free Thyroxine) 06/15/25 E03.9 - Hypothyroidism, unspecified, E78.5 - Hyperlipidemia, unspecified, F02.80 - Dementia in other diseases classified elsewhere, unspecified severity, without behavioral disturbance, psychotic disturbance, mood disturbance, and anxiety, G31.09 - Other frontotemporal neurocognitive disorder, I10 - Essential (primary) hypertension, M81.0 - Age- related osteoporosis without current pathological fracture, Z86.0101 - Personal history of adenomatous and serrated colon polyps Lipid Panel 06/15/25 E03.9 - Hypothyroidism, unspecified, E78.5 - Hyperlipidemia, unspecified, F02.80 - Dementia in other diseases classified elsewhere, unspecified severity, without behavioral disturbance, psychotic disturbance, mood disturbance, and anxiety, G31.09 - Other frontotemporal neurocognitive disorder, I10 - Essential (primary) hypertension, M81.0 - Age- related osteoporosis without current pathological fracture, Z86.0101 - Personal history of adenomatous and serrated colon polyps Alanine Aminotransferase 06/15/25 E03.9 - Hypothyroidism, unspecified, E78.5 - Hyperlipidemia, unspecified, F02.80 - Dementia in other diseases classified elsewhere, unspecified severity, without behavioral disturbance, psychotic disturbance, mood disturbance, and anxiety, G31.09 - Other frontotemporal neurocognitive disorder, I10 - Essential (primary) hypertension, M81.0 - Age- related osteoporosis without current pathological fracture, Z86.0101 - Personal history of adenomatous and serrated colon polyps Aspartate Amino Transferase 06/15/25 E03.9 - Hypothyroidism, unspecified, E78.5 - Hyperlipidemia, unspecified, F02.80 - Dementia in other diseases classified elsewhere, unspecified severity, without behavioral disturbance, psychotic disturbance, mood disturbance, and anxiety, G31.09 - Other frontotemporal neurocognitive disorder, I10 - Essential (primary) hypertension, M81.0 - Age- related osteoporosis without current pathological fracture, Z86.0101 - Personal history of adenomatous and serrated colon polyps Vitamin B12 and Folate 06/15/25 E03.9 - Hypothyroidism, unspecified, E78.5 - Hyperlipidemia, unspecified, F02.80 - Dementia in other diseases classified elsewhere, unspecified severity, without behavioral disturbance, psychotic disturbance, mood disturbance, and anxiety, G31.09 - Other frontotemporal neurocognitive disorder, I10 - Essential (primary) hypertension, M81.0 - Age- related osteoporosis without current pathological fracture, Z86.0101 - Personal history of adenomatous and serrated colon polyps Thyroid Stimulating Hormone 06/15/25 E03.9 - Hypothyroidism, unspecified, E78.5 - Hyperlipidemia, unspecified, F02.80 - Dementia in other diseases classified elsewhere, unspecified severity, without behavioral disturbance, psychotic disturbance, mood disturbance, and anxiety, G31.09 - Other frontotemporal neurocognitive disorder, I10 - Essential (primary) hypertension, M81.0 - Age- related osteoporosis without current pathological fracture, Z86.0101 - Personal history of adenomatous and serrated colon polyps Vitamin D 25-OH Total 06/15/25 E03.9 - Hypothyroidism, unspecified, E78.5 - Hyperlipidemia, unspecified, F02.80 - Dementia in other diseases classified elsewhere, unspecified severity, without behavioral disturbance, psychotic disturbance, mood disturbance, and anxiety, G31.09 - Other frontotemporal neurocognitive disorder, I10 - Essential (primary) hypertension, M81.0 - Age- related osteoporosis without current pathological fracture, Z86.0101 - Personal history of adenomatous and serrated colon polyps Basic Metabolic Panel Fasting 06/15/25 E03.9 - Hypothyroidism, unspecified, E78.5 - Hyperlipidemia, unspecified, F02.80 - Dementia in other diseases classified elsewhere, unspecified severity, without behavioral disturbance, psychotic disturbance, mood disturbance, and anxiety, G31.09 - Other frontotemporal neurocognitive disorder, I10 - Essential (primary) hypertension, M81.0 - Age-related osteoporosis without current pathological fracture, Z86.0101 - Personal history of adenomatous and serrated colon polyps Hemoglobin and Hematocrit 06/15/25 E03.9 - Hypothyroidism, unspecified, E78.5 - Hyperlipidemia, unspecified, F02.80 - Dementia in other diseases classified elsewhere, unspecified severity, without behavioral disturbance, psychotic disturbance, mood disturbance, and anxiety, G31.09 - Other frontotemporal neurocognitive disorder, I10 - Essential (primary) hypertension, M81.0 - Age- related osteoporosis without current pathological fracture, Z86.0101 - Personal history of adenomatous and serrated colon polyps
[2025-06-15 14:20] VITALS: BP 136/70; PULSE 67; O2SAT 97; BMI 23.0
== END 2025-06-15 15:41 | disposition home or self-care (01) ==
PROVIDERS: PCP Internal Medicine; Visit Provider Internal Medicine
DX: E03.9 Hypothyroidism, unspecified (principal); G31.09 Other frontotemporal neurocognitive disorder; F02.80 Dementia in other diseases classified elsewhere, unspecified severity, without behavioral disturbance, psychotic disturbance, mood disturbance, and anxiety; E78.5 Hyperlipidemia, unspecified; I10 Essential (primary) hypertension; Z86.0101 Personal history of adenomatous and serrated colon polyps; M81.0 Age-related osteoporosis without current pathological fracture; F41.1 Generalized anxiety disorder

== ENCOUNTER → 2025-06-15 14:15 | Outpatient (BNVA) | payer OTHER, SELFPAY | PROVIDERS: PCP Internal Medicine; Visit Provider Internal Medicine | DX: I10 Essential (primary) hypertension (principal); E03.9 Hypothyroidism, unspecified; F41.1 Generalized anxiety disorder; E78.5 Hyperlipidemia, unspecified; M81.0 Age-related osteoporosis without current pathological fracture; G31.09 Other frontotemporal neurocognitive disorder; F02.80 Dementia in other diseases classified elsewhere, unspecified severity, without behavioral disturbance, psychotic disturbance, mood disturbance, and anxiety; Z86.0101 Personal history of adenomatous and serrated colon polyps | CPT/HCPCS: 96127; 99212 ==

== ENCOUNTER 2025-08-23 14:30 | Outpatient (AMB) | payer OTHER, SELFPAY ==
[2025-08-23 14:34] VITALS: BP 126/68; PULSE 74; O2SAT 95; BMI 22.3
--- NOTE | 2025-08-23 14:34 | A.OFFVIS_ITS ---
Vital Signs 08/23/25 14:34 Height 5 ft 3 in Weight 126 lb BMI 22.3 BP 126/68 Blood Pressure Location Rt brachial Position Sitting Pulse 74 Pulse Source Pulse Oximeter Pulse Oximetry (%) 95 Oxygen Delivery Method Room Air Intake Visit Reasons: Family Hx Colon Cancer Intake Note: New pt for recall colo screening. Per pt + daughter, believed to be about 10 years ago via [employer]. CC: Pt denies any GI sx or concerns at this time. 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 She is referred by Yenni Araujo. PMX Hypertension High cholesterol Hypothyroid Frontotemporal dementia Osteoporosis History of alcohol abuse Smoker Generalized anxiety disorder * SURGICAL HISTORY LEEP procedure Hiatal hernia repair Colonoscopy Tonsillectomy * ALLERGIES: NKDA * [employer] LABS: Laboratory Tests 12/15/24 09:31 Estimated GFR > 60 AST 26 ALT 18 Free T4 1.44 TODAY'S VISIT prior scope bowel or upper GI problems. cardiac or resp: anesthesia; ID FHX; PFSH Medical History Frontotemporal dementia Osteoporosis History of adenomatous polyp of colon Alcohol use disorder, mild, abuse Cigarette smoker one half pack a day or less Generalized anxiety disorder Essential hypertension Vitamin D deficiency Dyslipidemia Acquired hypothyroidism Surgical History History of colonoscopy History of loop electrosurgical excision procedure (LEEP) Family History Father Pneumonia Alcoholism Substance use disorder Mother Type 2 diabetes mellitus Skin cancer Brother Substance use disorder Sister Colon cancer Sister No problems noted. Daughter Mental health disorder Daughter Mental health disorder Maternal Uncle Mental health disorder Paternal Uncle Alcoholism Social History Housing: House Alcohol intake: current Alcohol intake frequency: 0-2 drinks per day Alcohol type: beer Patient Tobacco Use Status: Former Tobacco user e-Cigarette/Vaping Use: Never Used Advance Directives Date on File: 08/19/23 service: No Current occupational status: retired Cognitive needs: Yes Hearing needs: No Vision needs: Yes Review of Systems Const Denies fatigue, Denies fever(s), Denies night sweats, Denies poor appetite and Denies weight loss Eyes Details: glasses Reports requires corrective lenses ENT Reports Normal hearing present, Denies dental pain, Denies dysphagia, Denies hearing loss, Denies mouth pain, Denies odynophagia, Denies throat swelling, Denies tongue swelling and Reports other (Dentition adequate) Card Reports no additional complaints Resp Reports no additional complaints GI Details: Denies abdominal pain, Denies melena, Denies bloating, Denies hematochezia, Denies constipation, Denies GI cramping, Denies dysphagia, Denies excessive flatus, Denies early satiety, Denies heartburn, Denies diarrhea, Denies nausea, Denies odynophagia, Denies vomiting and Denies hematemesis Skin/Breast Denies pruritus, Denies lesions, Denies rash and Denies jaundice Neuro Reports Normal hearing present and Denies Abnormal speech present Endo Denies fatigue Aller/Immun Denies throat swelling and Denies tongue swelling Physical Exam Vital Signs: Last Vital Signs Pulse 74 08/23/25 14:34 BP 126/68 08/23/25 14:34 Pulse Ox 95 08/23/25 14:34 Oxygen Delivery Method Room Air 08/23/25 14:34 BMI result Body Mass Index 22.3 Const General: cooperative, no acute distress, well developed and well groomed Nutritional Appearance: well nourished and thin Orientation/consciousness: oriented to person, oriented to place and oriented to time Limitations: No language barrier and other limitations HEENT Head: Yes normocephalic and Yes atraumatic Eyes General: appearance normal, both eyes and all related structures Pupils: Equal, round and reactive pupils present Neck Neck: Yes normal visual inspection and Yes no lymphadenopathy Thyroid: Thyroid normal Resp Effort & Inspection: normal respiratory effort and able to speak in complete sentences Auscultation: clear to auscultation bilaterally Cardio Rate: regular rate Rhythm: regular rhythm Heart sounds: Normal, physiologic split S2 sound present Peripheral pulses: radial pulses present and posterior tibial pulses present GI Inspection: No distended and No Abdominal panniculus present Palpation (GI): Soft to palpation, nontender, no guarding, not rigid and No hepatosplenomegaly present Percussion: Yes normal to percussion Auscultation: normal bowel sounds Rectal Exam - Female: deferred Skin General skin exam: no rashes or lesions noted, turgor normal, skin not dry, no jaundice, No spider nevi and no striae Rashes: no rashes Nails: normal Neuro General: oriented to person, oriented to place and oriented to time Cranial nerves: Yes Equal, round and reactive pupils present and Yes Normal hearing present Speech: No Abnormal speech present Extrem General: Yes normal to inspection, No clubbing, No cyanosis and No edema Psych Appearance: grossly normal and well kempt Mental Status: other Speech and movement: Slowed speech present (Psych) Affect: normal affect Attitude: cooperative Thought process: Other thought process findings present Thought content: other Insight: Poor insight present (Psych) Judgement: Poor judgement present (Psych) Assessment & Plan Assessment & Plan (1) Pre-op examination: Code(s): Z01.818 - Encounter for other preprocedural examination Category: Medical (2) History of adenomatous polyp of colon: Code(s): Z86.0101 - Personal history of adenomatous and serrated colon polyps Category: Medical Plan She is here today with her daughter who is her healthcare proxy. The patient is in the memory program in assisted living facility for frontotemporal dementia. Unfortunately, her family lives in [place] so they are not around and they have been told by the assisted living facility that they will not help the patient prep for the colonoscopy. This obviously prevents a barrier to screening. We discussed the many options including potentially Cologuard, with a note that if it is positive we still may need to consider colonoscopy, and we also discuss options like CT colonography. Unfortunately you also after prep for CT colonography so this does not help us. They are also going to consult with her neurologist. This is because we need to look at what her 10 year survival rate need be to see whether it is worth putting her through the prep and the procedure. Her daughter is going to think about this and consider the options and call me back and let me know their decision. Coding Level of Care Code New Pt Level 3 (84147) Diagnoses Pre-op examination Z01.818 History of adenomatous polyp of colon Z86.0101
== END 2025-08-23 15:24 | disposition home or self-care (01) ==
LOC: HO.HGI 14:31
PROVIDERS: PCP Internal Medicine; Visit Provider Nurse Practitioner
DX: Z01.818 Encounter for other preprocedural examination (principal); Z12.11 Encounter for screening for malignant neoplasm of colon; Z86.0101 Personal history of adenomatous and serrated colon polyps
CPT/HCPCS: 99203

== ENCOUNTER → 2025-08-23 14:30 | Outpatient (BNVA) | payer OTHER, SELFPAY | PROVIDERS: PCP Internal Medicine; Visit Provider Nurse Practitioner | DX: Z01.818 Encounter for other preprocedural examination (principal); Z86.0101 Personal history of adenomatous and serrated colon polyps; G31.09 Other frontotemporal neurocognitive disorder | CPT/HCPCS: 99202 ==